=== PATIENT | female | born 1990 | race African-American/Black ===

== ENCOUNTER 2018-05-29 04:57 | Inpatient (IN) | payer MEDICAID, OTHER ==
[~2018-05-29] VITALS: Ht 322.6 cm; Wt 89.0 kg
[2018-05-29] VITALS (9 sets, daily range): BP systolic 108–145; BP diastolic 45–84
[~2018-05-29 04:57] MED LIST: ALBU17AE26
[2018-05-29] MEDS ORDERED: IPRATROPIUM BROMIDE (0.02%) 0.5MG/2.5ML NEB HHN STA (05:00)
[2018-05-29] MEDS ORDERED: METHYLPREDNISOLONE SOD SUCC 125 MG/2 ML VIAL IV STA (05:00)
[2018-05-29] MEDS ORDERED: ALBUTEROL (0.083%) 2.5MG/3ML NEB HHN STA (05:00)
[2018-05-29 05:29] LABS: EOSINOPHILS % 8.4 % (0.0-5.0); HEMATOCRIT. 40.7 % (36.0-48.0); HEMOGLOBIN. 13.8 g/dL (12.0-16.0); LYMPHOCYTES % 52.5 % (20.0-50.0); MEAN CORPUSCULAR HEMOGLOBIN 31.8 pg (28.0-32.0); MEAN CORPUSCULAR VOLUME 94.1 fL (81.0-99.0); MEAN PLATELET VOLUME 10.2 fl (7.4-10.4); MONOCYTES % 6.3 % (2.0-8.0); NEUTROPHILS % 31.8 % (40.0-76.0); PLATELET 243 x1000/uL (130-400); RED BLOOD CELL COUNT 4.32 mill/uL (4.2-5.4); RED CELL DISTRIBUTION WIDTH 13.9 % (11.6-14.6)
[2018-05-29] MEDS ORDERED: ONDANSETRON HCL 4MG/2ML INJ IV ONE (05:30)
[2018-05-29] MEDS ORDERED: HYDROCODONE/ACETAMINOPHEN 5/325MG TABLET PO ONE (05:30)
[2018-05-29 05:31] LABS: CHLORIDE 110 mEq/L (98-107)
[2018-05-29] MEDS ORDERED: LIDOCAINE HCL/PF 1% 2ML VIAL ONE (05:53)
[2018-05-29] MEDS ORDERED: MAGNESIUM 2 G PREMIX 50 ML IV ONE (06:00)
[2018-05-29 07:16] LABS: BG BASE EXCESS -2.4 mmol/L (-2.0-2.0); BG BILEVEL POS AIRWAY PRESSURE 15/5; BG CARBOXYHEMOGLOBIN 0.3 % (0.5-1.5); BG DEOXYHEMOGLOBIN 1.3 % (0.0-5.0); BG HCO3 ACT 23.7 mmol/L (22.0-26.0); BG METHEMOGLOBIN 0.2 % (0.0-1.5); BG OXYGEN SATURATION 98.7 % (92.0-98.5); BG OXYHEMOGLOBIN 98.2 % (94.0-97.0); BG PCO2 46.4 mmHg (35.0-45.0); BG PH 7.327 (7.350-7.450); BG PO2 152.1 mmHg (75.0-100.0); BG SAMPLE SITE RIGHT RADIAL; BG TOTAL HEMOGLOBIN 13.2 g/dL (12.0-18.0); BG VENT MODE MASK - BIPAP; BG VENT RATE 14 set
[2018-05-29] MEDS ORDERED: TRAMADOL 50MG TABLET PO PRN (10:30)
[2018-05-29] MEDS ORDERED: IPRATROPIUM/ALBUTEROL 0.5-3(2.5)MG/3ML NEB HHN PRN (11:00)
[2018-05-29] MEDS: HYDROMORPHONE HCL/PF 2MG/ML CPJ IV PRN ×2 (11:39→18:19)
[2018-05-29] MEDS ORDERED: CLONIDINE 0.1MG TABLET PO PRN (11:45)
[2018-05-29] MEDS ORDERED: ACETAMINOPHEN 325MG TABLET PO PRN (11:45)
[2018-05-29] MEDS ORDERED: DOCUSATE SODIUM 100MG CAPSULE PO PRN (11:45)
[2018-05-29] MEDS ORDERED: GUAIFENESIN 200MG TABLET PO PRN (11:45)
[2018-05-29] MEDS ORDERED: METHYLPREDNISOLONE SOD SUCC 40 MG/ML VIAL IV SCH (12:00)
[2018-05-29] MEDS: IPRATROPIUM/ALBUTEROL 0.5-3(2.5)MG/3ML NEB HHN SCH ×3 (12:35→20:11)
[2018-05-29] MEDS ORDERED: TERBUTALINE SULFATE 1MG/ML VIAL SUBCUT NR (12:45)
[2018-05-29] MEDS: AZITHROMYCIN 500 MG TABLET PO SCH (13:39)
[2018-05-29] MEDS: LORATADINE 10MG TABLET PO SCH (13:39)
[2018-05-29] MEDS: NICOTINE 7MG PATCH TD SCH (13:40)
[2018-05-29] MEDS: SODIUM CHLORIDE 0.9% 1,000 ML IV SCH (13:41)
[2018-05-29] MEDS: ONDANSETRON HCL 4MG/2ML INJ IV PRN ×2 (14:10→20:42)
[2018-05-29 17:37] LABS: *AMPHETAMINES SCREEN URINE NEGATIVE (NEGATIVE); *BARBITURATES SCREEN URINE NEGATIVE (NEGATIVE); *COCAINE SCREEN URINE NEGATIVE (NEGATIVE)
[2018-05-29 17:38] LABS: *BENZODIAZEPINES SCREEN URINE NEGATIVE (NEGATIVE); METHADONE URINE SCREEN NEGATIVE (NEGATIVE)
[2018-05-29] MEDS: MONTELUKAST SODIUM 10MG TABLET PO SCH (17:40)
[2018-05-29 17:41] LABS: PHENCYCLIDINE URINE SCREEN NEGATIVE (NEGATIVE)
[2018-05-29] MEDS: METHYLPREDNISOLONE SOD SUCC 125 MG/2 ML VIAL IV SCH ×2 (17:41→23:45)
[2018-05-29 17:51] LABS: CANNABINOID URINE SCREEN PRESUMTIVE POSITIVE (NEGATIVE); OPIATES URINE SCREEN PRESUMTIVE POSITIVE (NEGATIVE)
[2018-05-29 19:41] LABS: HCG SCREEN NEGATIVE
[2018-05-29] MEDS: FAMOTIDINE 20MG TABLET PO SCH (20:42)
[2018-05-29] MEDS ORDERED: FAMOTIDINE 20MG TABLET PO SCH (21:00)
[2018-05-30] VITALS (18 sets, daily range): BP systolic 95–145; BP diastolic 41–88
[2018-05-30] MEDS: HYDROMORPHONE HCL/PF 2MG/ML CPJ IV PRN ×4 (00:33→19:31)
[2018-05-30] MEDS: SODIUM CHLORIDE 0.9% 1,000 ML IV SCH ×2 (00:33→16:20)
[2018-05-30] MEDS: IPRATROPIUM/ALBUTEROL 0.5-3(2.5)MG/3ML NEB HHN SCH ×6 (04:11→21:38)
[2018-05-30] MEDS: ONDANSETRON HCL 4MG/2ML INJ IV PRN ×4 (04:14→19:31)
[2018-05-30] MEDS: METHYLPREDNISOLONE SOD SUCC 125 MG/2 ML VIAL IV SCH ×4 (05:29→21:55)
[2018-05-30 05:56] LABS: MEAN CORPUSCULAR HEMOGLOBIN 32.5 pg (28.0-32.0); MEAN CORPUSCULAR VOLUME 95.2 fL (81.0-99.0); MEAN PLATELET VOLUME 10.1 fl (7.4-10.4); PLATELET 232 x1000/uL (130-400); RED BLOOD CELL COUNT 3.99 mill/uL (4.2-5.4)
[2018-05-30 06:09] LABS: CHLORIDE 107 mEq/L (98-107)
[2018-05-30] MEDS: LORATADINE 10MG TABLET PO SCH (09:17)
[2018-05-30] MEDS: NICOTINE 7MG PATCH TD SCH (09:18)
[2018-05-30] MEDS: FAMOTIDINE 20MG TABLET PO SCH ×2 (09:18→21:55)
[2018-05-30] MEDS: AZITHROMYCIN 500 MG TABLET PO SCH (09:18)
[2018-05-30 10:11] LABS: PLATELET ESTIMATE NORMAL
[2018-05-30] MEDS: MONTELUKAST SODIUM 10MG TABLET PO SCH (16:57)
[2018-05-31] VITALS (14 sets, daily range): BP systolic 90–152; BP diastolic 30–79
[2018-05-31] MEDS: IPRATROPIUM/ALBUTEROL 0.5-3(2.5)MG/3ML NEB HHN SCH ×7 (00:35→23:44)
[2018-05-31] MEDS: HYDROMORPHONE HCL/PF 2MG/ML CPJ IV PRN ×4 (01:30→20:46)
[2018-05-31 06:02] LABS: BASOPHILS % 0.1 % (0.0-2.0); HEMATOCRIT. 37.6 % (36.0-48.0); HEMOGLOBIN. 12.7 g/dL (12.0-16.0); LYMPHOCYTES % 8.1 % (20.0-50.0); MEAN CORPUSCULAR VOLUME 94.6 fL (81.0-99.0); MEAN PLATELET VOLUME 10.1 fl (7.4-10.4); MONOCYTES % 2.6 % (2.0-8.0); NEUTROPHILS % 89.2 % (40.0-76.0); PLATELET 238 x1000/uL (130-400); RED BLOOD CELL COUNT 3.97 mill/uL (4.2-5.4); RED CELL DISTRIBUTION WIDTH 14.3 % (11.6-14.6)
[2018-05-31 06:26] LABS: CHLORIDE 106 mEq/L (98-107)
[2018-05-31] MEDS: SODIUM CHLORIDE 0.9% 1,000 ML IV SCH ×2 (06:45→20:53)
[2018-05-31] MEDS: METHYLPREDNISOLONE SOD SUCC 125 MG/2 ML VIAL IV SCH ×3 (06:45→20:45)
[2018-05-31] MEDS: LORATADINE 10MG TABLET PO SCH (08:13)
[2018-05-31] MEDS: FAMOTIDINE 20MG TABLET PO SCH ×2 (08:13→20:45)
[2018-05-31] MEDS: AZITHROMYCIN 500 MG TABLET PO SCH (08:13)
[2018-05-31] MEDS: NICOTINE 7MG PATCH TD SCH (08:14)
[2018-05-31] MEDS: ONDANSETRON HCL 4MG/2ML INJ IV PRN ×3 (08:29→20:46)
[2018-05-31] MEDS: MONTELUKAST SODIUM 10MG TABLET PO SCH (17:32)
[2018-05-31] MEDS: LORAZEPAM 0.5MG TABLET PO PRN (20:45)
[2018-06-01] VITALS (11 sets, daily range): BP systolic 95–148; BP diastolic 48–83
[2018-06-01] MEDS: HYDROMORPHONE HCL/PF 2MG/ML CPJ IV PRN ×4 (02:52→23:29)
[2018-06-01] MEDS: ONDANSETRON HCL 4MG/2ML INJ IV PRN ×3 (02:52→23:28)
[2018-06-01] MEDS: LORAZEPAM 0.5MG TABLET PO PRN ×2 (02:57→23:32)
[2018-06-01] MEDS: IPRATROPIUM/ALBUTEROL 0.5-3(2.5)MG/3ML NEB HHN SCH ×5 (03:50→20:27)
[2018-06-01 05:41] LABS: HEMATOCRIT. 36.2 % (36.0-48.0); HEMOGLOBIN. 12.4 g/dL (12.0-16.0); LYMPHOCYTES % 11.3 % (20.0-50.0); MEAN CORPUSCULAR HEMOGLOBIN 32.3 pg (28.0-32.0); MEAN CORPUSCULAR VOLUME 94.7 fL (81.0-99.0); MEAN PLATELET VOLUME 9.8 fl (7.4-10.4); MONOCYTES % 3.9 % (2.0-8.0); NEUTROPHILS % 84.8 % (40.0-76.0); PLATELET 215 x1000/uL (130-400); RED BLOOD CELL COUNT 3.82 mill/uL (4.2-5.4); RED CELL DISTRIBUTION WIDTH 14.3 % (11.6-14.6)
[2018-06-01] MEDS: METHYLPREDNISOLONE SOD SUCC 125 MG/2 ML VIAL IV SCH ×4 (06:41→23:28)
[2018-06-01] MEDS: LORATADINE 10MG TABLET PO SCH (07:49)
[2018-06-01] MEDS: FAMOTIDINE 20MG TABLET PO SCH (07:49)
[2018-06-01] MEDS: AZITHROMYCIN 500 MG TABLET PO SCH (07:49)
[2018-06-01 07:50] LABS: CHLORIDE 106 mEq/L (98-107)
[2018-06-01] MEDS: NICOTINE 7MG PATCH TD SCH (07:50)
[2018-06-01] MEDS: SODIUM CHLORIDE 0.9% 1,000 ML IV SCH (08:00)
[2018-06-01 09:03] LABS: CLARITY URINE CLEAR (CLEAR); COLOR URINE YELLOW (YELLOW); KETONES URINE NEGATIVE (NEGATIVE); LEUKOCYTE ESTERASE URINE NEGATIVE (NEGATIVE); NITRITE URINE NEGATIVE (NEGATIVE); OCCULT BLOOD URINE NEGATIVE (NEGATIVE); PH URINE 6.5 (4.5-8.0); PROTEIN URINE NEGATIVE (NEGATIVE); SPECIFIC GRAVITY URINE 1.017 (1.005-1.030); UROBILINOGEN URINE 0.2 E.U./dL (0.2-1.0)
[2018-06-01] MEDS: MONTELUKAST SODIUM 10MG TABLET PO SCH (16:28)
[2018-06-01] MEDS ORDERED: TERBUTALINE SULFATE 1MG/ML VIAL SUBCUT NR (17:15)
[2018-06-01] MEDS: FAMOTIDINE 20MG/2ML VIAL IV SCH (21:47)
[2018-06-02] VITALS (11 sets, daily range): BP systolic 114–137; BP diastolic 60–103
[2018-06-02] MEDS: IPRATROPIUM/ALBUTEROL 0.5-3(2.5)MG/3ML NEB HHN SCH ×6 (00:03→21:30)
[2018-06-02] MEDS: SODIUM CHLORIDE 0.9% 1,000 ML IV SCH ×2 (02:55→16:26)
[2018-06-02 05:07] LABS: BASOPHILS % 0.1 % (0.0-2.0); HEMATOCRIT. 37.7 % (36.0-48.0); HEMOGLOBIN. 12.8 g/dL (12.0-16.0); LYMPHOCYTES % 12.7 % (20.0-50.0); MEAN CORPUSCULAR HEMOGLOBIN 32.2 pg (28.0-32.0); MEAN PLATELET VOLUME 9.8 fl (7.4-10.4); MONOCYTES % 4.5 % (2.0-8.0); NEUTROPHILS % 82.7 % (40.0-76.0); PLATELET 212 x1000/uL (130-400); RED BLOOD CELL COUNT 3.97 mill/uL (4.2-5.4); RED CELL DISTRIBUTION WIDTH 14.1 % (11.6-14.6)
[2018-06-02] MEDS: ONDANSETRON HCL 4MG/2ML INJ IV PRN ×3 (05:31→18:57)
[2018-06-02] MEDS: METHYLPREDNISOLONE SOD SUCC 125 MG/2 ML VIAL IV SCH ×2 (05:31→11:46)
[2018-06-02] MEDS: HYDROMORPHONE HCL/PF 2MG/ML CPJ IV PRN ×3 (05:33→18:58)
[2018-06-02] MEDS: LORAZEPAM 0.5MG TABLET PO PRN ×3 (05:45→18:57)
[2018-06-02 05:48] LABS: CHLORIDE 108 mEq/L (98-107)
[2018-06-02] MEDS: LORATADINE 10MG TABLET PO SCH (08:29)
[2018-06-02] MEDS: NICOTINE 7MG PATCH TD SCH (08:29)
[2018-06-02] MEDS: AZITHROMYCIN 500 MG TABLET PO SCH (08:30)
[2018-06-02] MEDS: FAMOTIDINE 20MG/2ML VIAL IV SCH ×2 (08:30→21:47)
[2018-06-02] MEDS ORDERED: TERBUTALINE SULFATE 1MG/ML VIAL SUBCUT NR (11:30)
[2018-06-02] MEDS: MONTELUKAST SODIUM 10MG TABLET PO SCH (16:26)
[2018-06-02] MEDS: METHYLPREDNISOLONE SOD SUCC 40 MG/ML VIAL IV SCH (21:47)
[2018-06-03] VITALS (9 sets, daily range): BP systolic 117–150; BP diastolic 47–81
[2018-06-03] MEDS: IPRATROPIUM/ALBUTEROL 0.5-3(2.5)MG/3ML NEB HHN SCH ×4 (00:29→12:34)
[2018-06-03] MEDS: LORAZEPAM 0.5MG TABLET PO PRN ×2 (00:53→07:57)
[2018-06-03] MEDS: ONDANSETRON HCL 4MG/2ML INJ IV PRN ×3 (00:54→13:58)
[2018-06-03] MEDS: HYDROMORPHONE HCL/PF 2MG/ML CPJ IV PRN ×3 (00:54→13:57)
[2018-06-03] MEDS: SODIUM CHLORIDE 0.9% 1,000 ML IV SCH (06:05)
[2018-06-03 06:35] LABS: BASOPHILS % 0.2 % (0.0-2.0); HEMATOCRIT. 42.9 % (36.0-48.0); HEMOGLOBIN. 14.4 g/dL (12.0-16.0); LYMPHOCYTES % 12.2 % (20.0-50.0); MEAN CORPUSCULAR HEMOGLOBIN 32.1 pg (28.0-32.0); MEAN CORPUSCULAR VOLUME 95.3 fL (81.0-99.0); MEAN PLATELET VOLUME 10.2 fl (7.4-10.4); MONOCYTES % 8.2 % (2.0-8.0); NEUTROPHILS % 79.4 % (40.0-76.0); PLATELET 221 x1000/uL (130-400); RED CELL DISTRIBUTION WIDTH 13.8 % (11.6-14.6)
[2018-06-03 07:28] LABS: CHLORIDE 106 mEq/L (98-107)
[2018-06-03] MEDS: METHYLPREDNISOLONE SOD SUCC 40 MG/ML VIAL IV SCH ×2 (07:58→13:50)
[2018-06-03] MEDS: FAMOTIDINE 20MG/2ML VIAL IV SCH ×2 (09:00→10:03)
[2018-06-03] MEDS: LORATADINE 10MG TABLET PO SCH (10:02)
[2018-06-03] MEDS: AZITHROMYCIN 500 MG TABLET PO SCH (10:03)
[2018-06-03] MEDS: NICOTINE 7MG PATCH TD SCH (10:14)
== END 2018-06-03 15:20 | disposition home or self-care (01) | DRG 425 ==
LOC: ER 04:57 → 5EST 05:53 → EDBEDREQSVC 05:55 → EDBEDREQTM 05:55 → EDBEDREQ 05:55 → ENRESERV 08:07 → ER 08:29
PROVIDERS: ADMIT Internal Medicine; ATTEND Internal Medicine
PROC: 5A09357 Assistance with Respiratory Ventilation, Less than 24 Consecutive Hours, Continuous Positive Airway Pressure (ICD-10-PCS; principal; 2018-05-29)
PROC: 5A09357 Assistance with Respiratory Ventilation, Less than 24 Consecutive Hours, Continuous Positive Airway Pressure (ICD-10-PCS; 2018-06-03)
DX: E87.2 Acidosis (principal); J96.00 Acute respiratory failure, unspecified whether with hypoxia or hypercapnia; J45.901 Unspecified asthma with (acute) exacerbation; J82 Pulmonary eosinophilia, not elsewhere classified; M41.9 Scoliosis, unspecified; I10 Essential (primary) hypertension; D72.820 Lymphocytosis (symptomatic); E66.9 Obesity, unspecified; K21.9 Gastro-esophageal reflux disease without esophagitis; F12.90 Cannabis use, unspecified, uncomplicated; F17.210 Nicotine dependence, cigarettes, uncomplicated; Z68.1 Body mass index [BMI] 19.9 or less, adult
CPT/HCPCS: 36415; 36600; 71045; 72040; 72070; 73030; 74176; 76700; 80048; 80305; 82375; 82805; 83036; 83880; 84484; 84703; 85651; 86140; 93005; 94640; 96365; 96375; 99285; J1170; J2405; J2920; J2930; J3105; J3475; J3490; J7030; J7620

== ENCOUNTER 2019-02-11 21:18 | Inpatient (IN) | payer MEDICAID ==
[~2019-02-11] VITALS: Ht 165.1 cm; Wt 96.4 kg
[~2019-02-11 21:18] MED LIST changes: -ALBU17AE26; +ALBU18HF2 IH; +MOME13HF2 INH; +MONT10TA21 PO; +P20 MT; +PANT40TA4 MT
[2019-02-11] MEDS ORDERED: MAGNESIUM 2 G PREMIX 50 ML IV ONE (21:30)
[2019-02-11] MEDS ORDERED: EPINEPHRINE 1:1000 1 MG/ML AMP INJ ONE (21:30)
[2019-02-11] MEDS ORDERED: METHYLPREDNISOLONE SOD SUCC 125 MG/2 ML VIAL IV ONE (21:30)
[2019-02-11] MEDS ORDERED: ALBUTEROL (0.083%) 2.5MG/3ML NEB HHN ONE (21:30)
[2019-02-11 22:12] LABS: BASOPHILS % 0.5 % (0.0-2.0); EOSINOPHILS % 4.7 % (0.0-5.0); HEMATOCRIT. 38.5 % (36.0-48.0); HEMOGLOBIN. 12.9 g/dL (12.0-16.0); LYMPHOCYTES % 38.7 % (20.0-50.0); MEAN CORPUSCULAR HEMOGLOBIN 31.5 pg (28.0-32.0); MEAN CORPUSCULAR VOLUME 94.2 fL (81.0-99.0); MEAN PLATELET VOLUME 9.8 fl (7.4-10.4); MONOCYTES % 9.1 % (2.0-8.0); PLATELET 386 x1000/uL (130-400); RED BLOOD CELL COUNT 4.08 mill/uL (4.2-5.4); RED CELL DISTRIBUTION WIDTH 15.5 % (11.6-14.6)
[2019-02-11 22:18] LABS: CHLORIDE 106 mEq/L (98-107)
[2019-02-12] VITALS (13 sets, daily range): BP systolic 105–158; BP diastolic 51–99
[2019-02-12] MEDS ORDERED: IPRATROPIUM/ALBUTEROL 0.5-3(2.5)MG/3ML NEB HHN PRN (01:15)
[2019-02-12] MEDS ORDERED: LEVOFLOXACIN 500MG PREMIX 100 ML IV SCH ×2 (01:15→04:00)
[2019-02-12] MEDS: ONDANSETRON HCL 4MG/2ML INJ IV PRN ×2 (01:48→18:20)
[2019-02-12] MEDS: MORPHINE SULFATE 2 MG/ML CPJ (NOT FOR IM USE) IV PRN ×5 (01:49→22:50)
[2019-02-12] MEDS: IPRATROPIUM/ALBUTEROL 0.5-3(2.5)MG/3ML NEB HHN SCH ×5 (03:55→20:34)
[2019-02-12] MEDS ORDERED: INFLUENZA VIRUS VACCINE(AFLURIA) 0.5ML SYR IM ONE (05:45)
[2019-02-12] MEDS ORDERED: PNEUMOCOCCAL 23-VAL P-SAC VAC 0.5 ML IM ONE (05:45)
[2019-02-12] MEDS ORDERED: METHYLPREDNISOLONE SOD SUCC 40 MG/ML VIAL IV SCH (06:00)
[2019-02-12] MEDS ORDERED: PANTOPRAZOLE 40MG DR TABLET PO SCH (06:50)
[2019-02-12] MEDS: ENOXAPARIN 40MG/0.4ML SYR SUBCUT SCH (08:16)
[2019-02-12] MEDS: AMLODIPINE 5MG TABLET PO SCH (09:45)
[2019-02-12] MEDS: METHYLPREDNISOLONE SOD SUCC 125 MG/2 ML VIAL IV SCH ×2 (13:12→21:36)
[2019-02-12] MEDS: MONTELUKAST SODIUM 10MG TABLET PO SCH (18:21)
[2019-02-12 20:56] LABS: *AMPHETAMINES SCREEN URINE NEGATIVE (NEGATIVE)
[2019-02-12 20:57] LABS: *BENZODIAZEPINES SCREEN URINE NEGATIVE (NEGATIVE); *COCAINE SCREEN URINE NEGATIVE (NEGATIVE); METHADONE URINE SCREEN NEGATIVE (NEGATIVE)
[2019-02-12 20:58] LABS: PHENCYCLIDINE URINE SCREEN NEGATIVE (NEGATIVE)
[2019-02-12 21:04] LABS: *BARBITURATES SCREEN URINE PRESUMTIVE POSITIVE (NEGATIVE); CANNABINOID URINE SCREEN PRESUMTIVE POSITIVE (NEGATIVE); OPIATES URINE SCREEN PRESUMTIVE POSITIVE (NEGATIVE)
[2019-02-12] MEDS: FAMOTIDINE 20MG TABLET PO SCH (21:37)
[2019-02-12] MEDS: FLUTICASONE PROPIONATE 50MCG/SPRAY BOTTLE BOTHNSTRLS SCH (21:37)
[2019-02-12] MEDS: LORATADINE 10MG TABLET PO SCH (21:38)
[2019-02-13] VITALS (12 sets, daily range): BP systolic 120–158; BP diastolic 56–86
[2019-02-13] MEDS: ONDANSETRON HCL 4MG/2ML INJ IV PRN ×3 (00:25→13:15)
[2019-02-13] MEDS: IPRATROPIUM/ALBUTEROL 0.5-3(2.5)MG/3ML NEB HHN SCH ×6 (00:42→20:16)
[2019-02-13] MEDS: METHYLPREDNISOLONE SOD SUCC 125 MG/2 ML VIAL IV SCH ×3 (04:59→20:22)
[2019-02-13] MEDS: MORPHINE SULFATE 2 MG/ML CPJ (NOT FOR IM USE) IV PRN ×3 (05:05→14:59)
[2019-02-13] MEDS: DOCUSATE SODIUM 250MG CAPSULE PO PRN (09:31)
[2019-02-13] MEDS: FAMOTIDINE 20MG TABLET PO SCH ×2 (09:32→20:22)
[2019-02-13] MEDS: AMLODIPINE 5MG TABLET PO SCH (09:32)
[2019-02-13] MEDS: ENOXAPARIN 40MG/0.4ML SYR SUBCUT SCH (09:38)
[2019-02-13] MEDS ORDERED: BENZONATATE 100MG CAPSULE PO PRN (09:45)
[2019-02-13] MEDS ORDERED: LACTULOSE 20G/30ML UDC PO SCH (10:00)
[2019-02-13] MEDS ORDERED: GUAIFENESIN/CODEINE 100-10MG/5ML UDC PO PRN (12:00)
[2019-02-13] MEDS ORDERED: TERBUTALINE SULFATE 1MG/ML VIAL SUBCUT SCH (12:00)
[2019-02-13] MEDS: FLUTICASONE PROPIONATE 50MCG/SPRAY BOTTLE BOTHNSTRLS SCH ×2 (13:16→20:22)
[2019-02-13 16:45] LABS: CHLORIDE 106 mEq/L (98-107)
[2019-02-13 16:59] LABS: BASOPHILS % 0.1 % (0.0-2.0); HEMATOCRIT. 37.2 % (36.0-48.0); HEMOGLOBIN. 12.4 g/dL (12.0-16.0); LYMPHOCYTES % 7.8 % (20.0-50.0); MEAN CORPUSCULAR HEMOGLOBIN 31.3 pg (28.0-32.0); MEAN CORPUSCULAR VOLUME 94.2 fL (81.0-99.0); MEAN PLATELET VOLUME 9.8 fl (7.4-10.4); MONOCYTES % 5.1 % (2.0-8.0); PLATELET 335 x1000/uL (130-400); RED BLOOD CELL COUNT 3.95 mill/uL (4.2-5.4); RED CELL DISTRIBUTION WIDTH 15.3 % (11.6-14.6)
[2019-02-13] MEDS: MONTELUKAST SODIUM 10MG TABLET PO SCH (17:34)
[2019-02-13] MEDS: KETOROLAC 30MG/ML VIAL IV PRN (17:37)
[2019-02-13] MEDS: LORATADINE 10MG TABLET PO SCH (20:22)
[2019-02-14] VITALS (12 sets, daily range): BP systolic 104–159; BP diastolic 45–82
[2019-02-14] MEDS: IPRATROPIUM/ALBUTEROL 0.5-3(2.5)MG/3ML NEB HHN SCH ×6 (00:16→20:19)
[2019-02-14] MEDS: KETOROLAC 30MG/ML VIAL IV PRN ×3 (00:31→15:12)
[2019-02-14] MEDS: METHYLPREDNISOLONE SOD SUCC 125 MG/2 ML VIAL IV SCH ×3 (04:50→20:55)
[2019-02-14] MEDS: ONDANSETRON HCL 4MG/2ML INJ IV PRN ×2 (07:52→22:50)
[2019-02-14] MEDS: DOCUSATE SODIUM 250MG CAPSULE PO PRN (08:36)
[2019-02-14] MEDS: FAMOTIDINE 20MG TABLET PO SCH (08:36)
[2019-02-14] MEDS: AMLODIPINE 5MG TABLET PO SCH (08:39)
[2019-02-14] MEDS: FLUTICASONE PROPIONATE 50MCG/SPRAY BOTTLE BOTHNSTRLS SCH ×2 (08:39→20:55)
[2019-02-14] MEDS: ENOXAPARIN 40MG/0.4ML SYR SUBCUT SCH (08:41)
[2019-02-14] MEDS: HYDROCODONE/ACETAMINOPHEN 5/325MG TABLET PO PRN ×3 (12:17→22:51)
[2019-02-14] MEDS: MONTELUKAST SODIUM 10MG TABLET PO SCH (17:27)
[2019-02-14] MEDS: LEVOFLOXACIN 500MG PREMIX 100 ML IV SCH (17:30)
[2019-02-14] MEDS: LORATADINE 10MG TABLET PO SCH (20:55)
[2019-02-14] MEDS: FAMOTIDINE 40MG TABLET PO SCH (21:10)
[2019-02-15] VITALS (10 sets, daily range): BP systolic 119–150; BP diastolic 39–82
[2019-02-15] MEDS: IPRATROPIUM/ALBUTEROL 0.5-3(2.5)MG/3ML NEB HHN SCH ×6 (00:42→20:28)
[2019-02-15] MEDS: HYDROCODONE/ACETAMINOPHEN 5/325MG TABLET PO PRN ×3 (05:18→21:05)
[2019-02-15] MEDS: METHYLPREDNISOLONE SOD SUCC 125 MG/2 ML VIAL IV SCH ×3 (05:18→20:03)
[2019-02-15] MEDS: ONDANSETRON HCL 4MG/2ML INJ IV PRN ×3 (05:18→20:03)
[2019-02-15] MEDS: ENOXAPARIN 40MG/0.4ML SYR SUBCUT SCH (09:06)
[2019-02-15] MEDS: AMLODIPINE 5MG TABLET PO SCH (09:08)
[2019-02-15] MEDS: FAMOTIDINE 40MG TABLET PO SCH ×2 (09:09→20:03)
[2019-02-15] MEDS: FLUTICASONE PROPIONATE 50MCG/SPRAY BOTTLE BOTHNSTRLS SCH ×2 (09:10→20:03)
[2019-02-15] MEDS: KETOROLAC 30MG/ML VIAL IV PRN ×2 (09:11→18:21)
[2019-02-15] MEDS ORDERED: SORBITOL 70% SOLN 30ML PO SCH (12:00)
[2019-02-15] MEDS: DOCUSATE SODIUM 250MG CAPSULE PO SCH (12:00)
[2019-02-15 13:20] LABS: BASOPHILS % 0.3 % (0.0-2.0); EOSINOPHILS % 0.3 % (0.0-5.0); HEMATOCRIT. 39.1 % (36.0-48.0); HEMOGLOBIN. 12.8 g/dL (12.0-16.0); LYMPHOCYTES % 11.8 % (20.0-50.0); MEAN CORPUSCULAR HEMOGLOBIN 30.9 pg (28.0-32.0); MEAN CORPUSCULAR VOLUME 94.5 fL (81.0-99.0); MEAN PLATELET VOLUME 9.6 fl (7.4-10.4); MONOCYTES % 6.1 % (2.0-8.0); NEUTROPHILS % 81.5 % (40.0-76.0); PLATELET 317 x1000/uL (130-400); RED BLOOD CELL COUNT 4.14 mill/uL (4.2-5.4); RED CELL DISTRIBUTION WIDTH 15.4 % (11.6-14.6)
[2019-02-15 13:25] LABS: CHLORIDE 107 mEq/L (98-107)
[2019-02-15] MEDS: MONTELUKAST SODIUM 10MG TABLET PO SCH (17:47)
[2019-02-15] MEDS ORDERED: KETOROLAC 15MG/ML VIAL IV PRN (18:15)
[2019-02-15] MEDS: LEVOFLOXACIN 500MG PREMIX 100 ML IV SCH (18:18)
[2019-02-15] MEDS: LORATADINE 10MG TABLET PO SCH (20:03)
[2019-02-16] VITALS (9 sets, daily range): BP systolic 124–157; BP diastolic 49–73
[2019-02-16] MEDS: IPRATROPIUM/ALBUTEROL 0.5-3(2.5)MG/3ML NEB HHN SCH ×6 (00:32→20:24)
[2019-02-16] MEDS: KETOROLAC 30MG/ML VIAL IV PRN ×3 (00:33→21:24)
[2019-02-16] MEDS: METHYLPREDNISOLONE SOD SUCC 125 MG/2 ML VIAL IV SCH ×3 (05:02→20:22)
[2019-02-16] MEDS: ONDANSETRON HCL 4MG/2ML INJ IV PRN ×2 (05:07→15:35)
[2019-02-16] MEDS: HYDROCODONE/ACETAMINOPHEN 5/325MG TABLET PO PRN (07:44)
[2019-02-16] MEDS: ENOXAPARIN 30MG/0.3ML SYR SUBCUT SCH ×2 (08:05→21:22)
[2019-02-16] MEDS: FAMOTIDINE 40MG TABLET PO SCH ×2 (08:06→20:21)
[2019-02-16] MEDS: DOCUSATE SODIUM 250MG CAPSULE PO SCH (08:06)
[2019-02-16] MEDS: AMLODIPINE 5MG TABLET PO SCH (08:06)
[2019-02-16] MEDS ORDERED: DIATR MEGLU/DIATRIZOATE SOLN 30ML PO SCH ×2 (12:00→14:30)
[2019-02-16] MEDS ORDERED: NA PHOS,M-B/NA PHOS,DI-BA ENEMA 118ML PR ONE (12:00)
[2019-02-16] MEDS ORDERED: GUAIFENESIN/CODEINE 200-20MG/10ML UDC PO PRN (15:04)
[2019-02-16 17:10] LABS: UCG SCREEN NEGATIVE
[2019-02-16] MEDS: LEVOFLOXACIN 500MG PREMIX 100 ML IV SCH (19:19)
[2019-02-16] MEDS: MONTELUKAST SODIUM 10MG TABLET PO SCH (19:19)
[2019-02-16] MEDS: LORATADINE 10MG TABLET PO SCH (20:21)
[2019-02-16] MEDS ORDERED: IOHEXOL-300 100 ML BOTTLE ONE (22:31)
[2019-02-17] VITALS (9 sets, daily range): BP systolic 111–136; BP diastolic 61–78
[2019-02-17] MEDS: IPRATROPIUM/ALBUTEROL 0.5-3(2.5)MG/3ML NEB HHN SCH ×5 (00:47→16:16)
[2019-02-17] MEDS: KETOROLAC 30MG/ML VIAL IV PRN ×2 (04:04→14:14)
[2019-02-17] MEDS: METHYLPREDNISOLONE SOD SUCC 125 MG/2 ML VIAL IV SCH ×2 (04:04→12:04)
[2019-02-17] MEDS: AMLODIPINE 5MG TABLET PO SCH (08:25)
[2019-02-17] MEDS: DOCUSATE SODIUM 250MG CAPSULE PO SCH (08:25)
[2019-02-17] MEDS: FAMOTIDINE 40MG TABLET PO SCH (08:25)
[2019-02-17] MEDS: ENOXAPARIN 30MG/0.3ML SYR SUBCUT SCH (08:25)
[2019-02-17] MEDS: HYDROCODONE/ACETAMINOPHEN 5/325MG TABLET PO PRN (09:54)
[2019-02-17] MEDS ORDERED: BISACODYL 10MG SUPP PR SCH (12:45)
[2019-02-17] MEDS ORDERED: SORBITOL 70% SOLN 30ML PO SCH (12:45)
[2019-02-17] MEDS: ONDANSETRON HCL 4MG/2ML INJ IV PRN (13:25)
[2019-02-17] MEDS: MONTELUKAST SODIUM 10MG TABLET PO SCH (16:23)
[2019-02-17] MEDS: LEVOFLOXACIN 500MG PREMIX 100 ML IV SCH (17:04)
[2019-02-17] MEDS: LACTULOSE 20G/30ML UDC PO NR ×2 (18:11→18:13)
== END 2019-02-17 20:20 | disposition home or self-care (01) | DRG 139 ==
LOC: ER 21:18 → 3WST 21:37 → ENRESERV 22:46 → 3WST 02-17 15:41
PROVIDERS: ADMIT Internal Medicine; ATTEND Internal Medicine
PROC: 5A09357 Assistance with Respiratory Ventilation, Less than 24 Consecutive Hours, Continuous Positive Airway Pressure (ICD-10-PCS; principal; 2019-02-11)
PROC: 5A09357 Assistance with Respiratory Ventilation, Less than 24 Consecutive Hours, Continuous Positive Airway Pressure (ICD-10-PCS; 2019-02-11)
DX: J18.9 Pneumonia, unspecified organism (principal); J96.00 Acute respiratory failure, unspecified whether with hypoxia or hypercapnia; J45.902 Unspecified asthma with status asthmaticus; J00 Acute nasopharyngitis [common cold]; E66.9 Obesity, unspecified; G89.29 Other chronic pain; F12.90 Cannabis use, unspecified, uncomplicated; K21.9 Gastro-esophageal reflux disease without esophagitis; M94.0 Chondrocostal junction syndrome [Tietze]; I10 Essential (primary) hypertension; F17.210 Nicotine dependence, cigarettes, uncomplicated; Z71.3 Dietary counseling and surveillance; Z71.6 Tobacco abuse counseling; Z68.35 Body mass index [BMI] 35.0-35.9, adult; Z79.899 Other long term (current) drug therapy; Z82.49 Family history of ischemic heart disease and other diseases of the circulatory system
CPT/HCPCS: 36415; 71045; 72040; 72070; 72100; 74018; 74177; 80048; 80305; 81025; 83036; 85025; 90686; 90732; 94640; 94660; 96365; 99291; J1650; J1885; J1956; J2270; J2405; J2920; J2930; J3105; J3475; J3490; J7040; J7611; J7620; Q9963; Q9967

== ENCOUNTER 2019-10-09 12:25 | Emergency (ER) | payer MEDICAID ==
[~2019-10-09] VITALS: Ht 160 cm; Wt 87.0 kg
[2019-10-09] MEDS ORDERED: METOCLOPRAMIDE HCL 10MG/2ML VIAL IV STA (13:08)
[2019-10-09] MEDS ORDERED: FAMOTIDINE 20MG/2ML VIAL IV STA (13:08)
[2019-10-09] MEDS ORDERED: MAGNESIUM/ALUMINUM HYDROXIDE/SIMETHICONE 30ML UDC PO STA (13:08)
[2019-10-09] MEDS ORDERED: KETOROLAC 60MG/2ML VIAL IM STA (13:08)
[2019-10-09] MEDS ORDERED: VISCOUS LIDOCAINE 2% 15 ML UDC PO STA (13:08)
[2019-10-09] MEDS ORDERED: ALBUTEROL 6.7GM HFA INHALER ORI ONE (13:30)
[2019-10-09 13:36] LABS: HEMATOCRIT. 34.7 % (36.0-48.0); HEMOGLOBIN. 11.7 g/dL (12.0-16.0); MEAN CORPUSCULAR HEMOGLOBIN 30.7 pg (28.0-32.0); MEAN PLATELET VOLUME 10.1 fl (7.4-10.4); PLATELET 213 x1000/uL (130-400); RED BLOOD CELL COUNT 3.81 mill/uL (4.2-5.4); RED CELL DISTRIBUTION WIDTH 16.6 % (11.6-14.6)
[2019-10-09 13:37] LABS: CHLORIDE 111 mEq/L (98-107)
[2019-10-09] MEDS ORDERED: POTASSIUM CHLORIDE 20MEQ TABLET SR PO NR (14:00)
[2019-10-09] MEDS ORDERED: ONDANSETRON 4MG ODT PO NR (14:00)
[2019-10-09 14:06] LABS: PLATELET ESTIMATE NORMAL
[2019-10-09 15:21] VITALS: BP 128/78
[2019-11-16] MEDS ORDERED: HYDR-4009 MT (16:55)
[2019-11-16] MEDS ORDERED: MED4 MT (16:55)
== END 2019-10-09 15:22 | disposition home or self-care (01) ==
LOC: ER 12:25
DX: J45.909 Unspecified asthma, uncomplicated (principal); K29.70 Gastritis, unspecified, without bleeding; R03.0 Elevated blood-pressure reading, without diagnosis of hypertension
CPT/HCPCS: 36415; 71045; 80053; 83690; 83880; 84484; 85025; 93005; 94640; 96374; 96375; 99285; J1885; J2765; J3490; Q0162; Z7610

== ENCOUNTER 2019-12-14 10:23 | Emergency (ER) | payer MEDICAID ==
[~2019-12-14] VITALS: Ht 160 cm; Wt 87.0 kg
[~2019-12-14 10:23] MED LIST changes: +HYDR-4009 MT; +MED4 MT; -P20 MT
[2019-12-14] MEDS ORDERED: ALBUTEROL (0.083%) 2.5MG/3ML NEB HHN STA (10:57)
[2019-12-14] MEDS ORDERED: METHYLPREDNISOLONE SOD SUCC 125 MG/2 ML VIAL IV STA (10:57)
[2019-12-14] MEDS ORDERED: IPRATROPIUM BROMIDE (0.02%) 0.5MG/2.5ML NEB HHN STA (10:57)
[2019-12-14] MEDS ORDERED: SODIUM CHLORIDE 0.9% 1,000 ML IV ONE (11:00)
[2019-12-14 11:31] LABS: BASOPHILS % 0.4 % (0.0-2.0); EOSINOPHILS % 0.7 % (0.0-5.0); HEMATOCRIT. 36.4 % (36.0-48.0); HEMOGLOBIN. 12.3 g/dL (12.0-16.0); LYMPHOCYTES % 17.5 % (20.0-50.0); MEAN CORPUSCULAR VOLUME 92.1 fL (81.0-99.0); MEAN PLATELET VOLUME 9.3 fl (7.4-10.4); MONOCYTES % 3.2 % (2.0-8.0); NEUTROPHILS % 78.2 % (40.0-76.0); PLATELET 269 x1000/uL (130-400); RED BLOOD CELL COUNT 3.95 mill/uL (4.2-5.4); RED CELL DISTRIBUTION WIDTH 16.6 % (11.6-14.6)
[2019-12-14 11:39] LABS: CHLORIDE 109 mEq/L (98-107)
[2019-12-14] MEDS ORDERED: ALBUTEROL (0.083%) 2.5MG/3ML NEB ONE (11:54)
[2019-12-14 13:00] VITALS: BP 140/71
[2019-12-14] MEDS ORDERED: ALBUTEROL (0.083%) 2.5MG/3ML NEB HHN ONE (13:00)
[2019-12-14] MEDS ORDERED: HYDROCODONE/ACETAMINOPHEN 5/325MG TABLET PO ONE (13:00)
== END 2019-12-14 14:00 | disposition home or self-care (01) ==
LOC: ER 10:23
DX: J45.901 Unspecified asthma with (acute) exacerbation (principal); G89.29 Other chronic pain; M54.9 Dorsalgia, unspecified; F17.200 Nicotine dependence, unspecified, uncomplicated; Z88.6 Allergy status to analgesic agent; Z79.899 Other long term (current) drug therapy; Z98.890 Other specified postprocedural states
CPT/HCPCS: 36415; 71045; 80053; 81025; 83690; 85025; 93005; 94640; 96374; 99285; J2930; J7030; Z7610

== ENCOUNTER 2019-12-14 21:02 | Emergency (ER) | payer MEDICAID ==
[~2019-12-14] VITALS: Ht 160 cm; Wt 87.0 kg
[2019-12-14] MEDS: KETOROLAC 30MG/ML VIAL IM ONE (22:16)
[2019-12-14 22:38] LABS: CLARITY URINE CLEAR (CLEAR); COLOR URINE YELLOW (YELLOW); KETONES URINE TRACE (NEGATIVE); LEUKOCYTE ESTERASE URINE NEGATIVE (NEGATIVE); NITRITE URINE NEGATIVE (NEGATIVE); OCCULT BLOOD URINE NEGATIVE (NEGATIVE); PROTEIN URINE NEGATIVE (NEGATIVE); SPECIFIC GRAVITY URINE 1.033 (1.005-1.030)
[2019-12-14] MEDS: MORPHINE SULFATE 2 MG/ML CPJ (NOT FOR IM USE) IV ONE (23:58)
[2019-12-15 01:41] VITALS: BP 131/74
== END 2019-12-15 01:42 | disposition home or self-care (01) ==
LOC: ER 21:02
DX: M54.9 Dorsalgia, unspecified (principal); K21.9 Gastro-esophageal reflux disease without esophagitis; J45.909 Unspecified asthma, uncomplicated; Z88.6 Allergy status to analgesic agent; Z79.899 Other long term (current) drug therapy; Z98.890 Other specified postprocedural states
CPT/HCPCS: 81003; 96372; 96374; 99284; J1885; J2270

== ENCOUNTER 2020-01-27 19:06 | Emergency (ER) | payer MEDICAID ==
[~2020-01-27] VITALS: Ht 188 cm; Wt 87.0 kg
[~2020-01-27 19:06] MED LIST changes: +ALPR1TAB2 PO; +GABA-529 PO; -HYDR-4009 MT; +OXYC-662 MT; +ZOLP5TAB2 PO
[2020-01-27] MEDS ORDERED: KETOROLAC 30MG/ML VIAL IM ONE (21:45)
[2020-01-27] MEDS ORDERED: ONDANSETRON 4MG ODT PO ONE (21:45)
[2020-01-27 22:32] LABS: CLARITY URINE TURBID (CLEAR); COLOR URINE YELLOW (YELLOW); KETONES URINE NEGATIVE (NEGATIVE); LEUKOCYTE ESTERASE URINE NEGATIVE (NEGATIVE); NITRITE URINE NEGATIVE (NEGATIVE); OCCULT BLOOD URINE NEGATIVE (NEGATIVE); PH URINE >=9.0 (4.5-8.0); PROTEIN URINE NEGATIVE (NEGATIVE)
[2020-01-27] MEDS ORDERED: OXYCODONE HCL/ACETAMINOPHEN 5/325MG TABLET PO ONE (23:30)
[2020-01-28 00:02] LABS: BASOPHILS % 1.1 % (0.0-2.0); EOSINOPHILS % 8.5 % (0.0-5.0); HEMATOCRIT. 34.5 % (36.0-48.0); HEMOGLOBIN. 11.7 g/dL (12.0-16.0); LYMPHOCYTES % 41.8 % (20.0-50.0); MEAN CORPUSCULAR HEMOGLOBIN 31.1 pg (28.0-32.0); MEAN CORPUSCULAR VOLUME 91.8 fL (81.0-99.0); MEAN PLATELET VOLUME 9.1 fl (7.4-10.4); MONOCYTES % 5.8 % (2.0-8.0); NEUTROPHILS % 42.8 % (40.0-76.0); PLATELET 287 x1000/uL (130-400); RED BLOOD CELL COUNT 3.76 mill/uL (4.2-5.4); RED CELL DISTRIBUTION WIDTH 15.8 % (11.6-14.6)
[2020-01-28 00:18] LABS: CHLORIDE 109 mEq/L (98-107)
[2020-01-28] MEDS ORDERED: ALBUTEROL (0.083%) 2.5MG/3ML NEB HHN STA (00:39)
[2020-01-28] MEDS ORDERED: PREDNISONE 20MG TABLET PO STA (00:39)
[2020-01-28] MEDS ORDERED: IPRATROPIUM BROMIDE (0.02%) 0.5MG/2.5ML NEB HHN STA (00:39)
[2020-01-28] MEDS ORDERED: KETOROLAC 30MG/ML VIAL IM ONE (02:15)
[2020-01-28 02:29] VITALS: BP 122/75
[2020-01-30] MEDS ORDERED: ALBU4TAB6 INH (23:43)
[2020-01-30] MEDS ORDERED: ALPR1TAB2 PO (23:43)
[2020-01-30] MEDS ORDERED: ZOLP5TAB2 MT (23:43)
== END 2020-01-28 02:29 | disposition home or self-care (01) ==
LOC: ER 19:06
DX: R10.32 Left lower quadrant pain (principal); M54.9 Dorsalgia, unspecified; J45.909 Unspecified asthma, uncomplicated; Z79.899 Other long term (current) drug therapy
CPT/HCPCS: 36415; 72100; 76830; 76856; 80053; 81003; 81025; 85025; 94640; 96372; 99285; J1885; J7512; Q0162; Z7610

== ENCOUNTER 2020-02-13 14:29 | Emergency (ER) | payer MEDICAID, OTHER ==
[~2020-02-13] VITALS: Ht 160 cm; Wt 87.0 kg
[~2020-02-13 14:29] MED LIST changes: +OMEP20TA2 MT; -PANT40TA4 MT; +PANT40TA51 MT; +TRAM50TA3 MT; +ZOLP5TAB2 MT
[2020-02-13 15:07] VITALS: BP 135/75
[2020-02-13 16:37] LABS: BASOPHILS % 0.5 % (0.0-2.0); EOSINOPHILS % 2.4 % (0.0-5.0); HEMATOCRIT. 35.7 % (36.0-48.0); HEMOGLOBIN. 12.1 g/dL (12.0-16.0); LYMPHOCYTES % 25.9 % (20.0-50.0); MEAN CORPUSCULAR HEMOGLOBIN 30.8 pg (28.0-32.0); MEAN CORPUSCULAR VOLUME 91.4 fL (81.0-99.0); MEAN PLATELET VOLUME 9.6 fl (7.4-10.4); NEUTROPHILS % 59.2 % (40.0-76.0); PLATELET 243 x1000/uL (130-400); RED BLOOD CELL COUNT 3.91 mill/uL (4.2-5.4)
[2020-02-13 16:42] LABS: CHLORIDE 107 mEq/L (98-107)
[2020-02-13 16:48] LABS: HCG SCREEN NEGATIVE
[2020-02-13] MEDS ORDERED: ALBUTEROL 6.7GM HFA INHALER ORI ONE (21:15)
[2020-02-13] MEDS ORDERED: PREDNISONE 20MG TABLET PO ONE (21:15)
== END 2020-02-13 21:50 | disposition home or self-care (01) ==
LOC: ER 14:29
DX: J45.901 Unspecified asthma with (acute) exacerbation (principal); R10.9 Unspecified abdominal pain; M54.9 Dorsalgia, unspecified; G89.29 Other chronic pain; F41.9 Anxiety disorder, unspecified; K76.0 Fatty (change of) liver, not elsewhere classified; K21.9 Gastro-esophageal reflux disease without esophagitis; Z88.6 Allergy status to analgesic agent; Z88.8 Allergy status to other drugs, medicaments and biological substances
CPT/HCPCS: 36415; 71045; 80048; 80076; 84703; 85025; 93005; 94640; 99285; J7512; Z7610

== ENCOUNTER 2020-02-24 14:36 | Emergency (ER) | payer OTHER ==
[~2020-02-24] VITALS: Ht 165.1 cm; Wt 75.0 kg
[~2020-02-24 14:36] MED LIST changes: +PANT40TA4 MT; -PANT40TA51 MT
[2020-02-24 17:06] LABS: BASOPHILS % 0.6 % (0.0-2.0); EOSINOPHILS % 9.9 % (0.0-5.0); HEMATOCRIT. 36.3 % (36.0-48.0); HEMOGLOBIN. 11.7 g/dL (12.0-16.0); LYMPHOCYTES % 41.3 % (20.0-50.0); MEAN CORPUSCULAR HEMOGLOBIN 29.5 pg (28.0-32.0); MEAN CORPUSCULAR VOLUME 91.7 fL (81.0-99.0); MEAN PLATELET VOLUME 10.2 fl (7.4-10.4); MONOCYTES % 9.7 % (2.0-8.0); NEUTROPHILS % 38.5 % (40.0-76.0); PLATELET 195 x1000/uL (130-400); RED BLOOD CELL COUNT 3.96 mill/uL (4.2-5.4); RED CELL DISTRIBUTION WIDTH 16.4 % (11.6-14.6)
[2020-02-24 17:14] LABS: CHLORIDE 108 mEq/L (98-107)
[2020-02-24 17:38] LABS: PROTHROMBIN TIME 10.4 sec (9.6-11.0)
[2020-02-24] MEDS ORDERED: HYDROCODONE/ACETAMINOPHEN 5/325MG TABLET PO ONE (18:00)
[2020-02-24] MEDS ORDERED: ONDANSETRON HCL 4MG/2ML INJ IV PRN (18:30)
[2020-02-24] MEDS ORDERED: IOHEXOL-300 100 ML BOTTLE ONE (23:26)
[2020-02-25] MEDS ORDERED: HYDROCODONE/ACETAMINOPHEN 10/325MG TABLET PO PRN (01:45)
[2020-02-25] MEDS ORDERED: IPRATROPIUM/ALBUTEROL 0.5-3(2.5)MG/3ML NEB HHN PRN (08:45)
[2020-02-25] MEDS ORDERED: METOCLOPRAMIDE HCL 10MG/2ML VIAL IV PRN (12:15)
[2020-02-26 08:10] VITALS: BP 112/60
[2020-02-26] MEDS ORDERED: TRAMADOL 50MG TABLET PO ONE (10:30)
[2020-02-26] MEDS ORDERED: KETOROLAC 30MG/ML VIAL IV ONE (15:30)
== END 2020-02-26 18:12 | disposition home or self-care (01) ==
LOC: ER 14:36 → EDBEDREQ 17:40 → CANBEDREQ 02-26 17:54 → ER 02-26 18:12
DX: G89.29 Other chronic pain (principal); R10.84 Generalized abdominal pain; E87.8 Other disorders of electrolyte and fluid balance, not elsewhere classified; R53.1 Weakness; R20.0 Anesthesia of skin; J45.909 Unspecified asthma, uncomplicated; Z76.5 Malingerer [conscious simulation]; F12.90 Cannabis use, unspecified, uncomplicated; F17.210 Nicotine dependence, cigarettes, uncomplicated; Z71.6 Tobacco abuse counseling
CPT/HCPCS: 36415; 72148; 74177; 80053; 83690; 85025; 85610; 85651; 96374; 96375; 99285; 99406; J1885; J2405; J2765; Q9967

== ENCOUNTER 2020-06-18 07:10 | Inpatient (IN) | payer OTHER ==
[~2020-06-18] VITALS: Ht 160 cm; Wt 81.2 kg
[~2020-06-18 07:10] MED LIST changes: -OMEP20TA2 MT; -PANT40TA4 MT; +PANT40TA51 MT; -ZOLP5TAB2 MT
[2020-06-18] MEDS ORDERED: IPRATROPIUM BROMIDE (0.02%) 0.5MG/2.5ML NEB HHN STA (07:16)
[2020-06-18] MEDS ORDERED: METHYLPREDNISOLONE SOD SUCC 125 MG/2 ML VIAL IV STA (07:16)
[2020-06-18] MEDS: ALBUTEROL (0.083%) 2.5MG/3ML NEB HHN SCH ×3 (07:20→08:10)
[2020-06-18 07:48] LABS: BG BASE EXCESS -1.9 mmol/L (-2.0-2.0); BG CARBOXYHEMOGLOBIN 0.9 % (0.5-1.5); BG DEOXYHEMOGLOBIN 0.6 % (0.0-5.0); BG HCO3 ACT 24.3 mmol/L (22.0-26.0); BG METHEMOGLOBIN 0.4 % (0.0-1.5); BG OXYGEN SATURATION 99.4 % (92.0-98.5); BG OXYHEMOGLOBIN 98.1 % (94.0-97.0); BG PCO2 47.5 mmHg (35.0-45.0); BG PH 7.327 (7.350-7.450); BG PO2 230.9 mmHg (75.0-100.0); BG SAMPLE SITE RIGHT RADIAL; BG TOTAL HEMOGLOBIN 11.4 g/dL (12.0-18.0); BG VENT MODE HHN TX
[2020-06-18 08:25] LABS: BASOPHILS % 0.5 % (0.0-2.0); EOSINOPHILS % 4.4 % (0.0-5.0); HEMATOCRIT. 32.5 % (36.0-48.0); HEMOGLOBIN. 10.6 g/dL (12.0-16.0); LYMPHOCYTES % 31.7 % (20.0-50.0); MEAN CORPUSCULAR HEMOGLOBIN 28.2 pg (28.0-32.0); MEAN CORPUSCULAR VOLUME 86.7 fL (81.0-99.0); MONOCYTES % 6.8 % (2.0-8.0); NEUTROPHILS % 56.6 % (40.0-76.0); PLATELET 276 x1000/uL (130-400); RED BLOOD CELL COUNT 3.75 mill/uL (4.2-5.4); RED CELL DISTRIBUTION WIDTH 17.8 % (11.6-14.6)
[2020-06-18 08:32] LABS: CHLORIDE 109 mEq/L (98-107)
[2020-06-18 08:35] LABS: PROTHROMBIN TIME 10.9 sec (9.6-11.0)
[2020-06-18 08:36] LABS: ETHANOL BLOOD < 10 mg/dL
[2020-06-18 08:41] LABS: HCG SCREEN NEGATIVE
[2020-06-18] MEDS ORDERED: ALBUTEROL (0.083%) 2.5MG/3ML NEB HHN SCH (10:01)
[2020-06-18] MEDS ORDERED: MORPHINE SULFATE 4 MG/ML CPJ (NOT FOR IM USE) IV SCH (10:15)
[2020-06-18] MEDS ORDERED: MAGNESIUM 1 G PREMIX 100 ML IV SCH (10:15)
[2020-06-18 11:01] LABS: CLARITY URINE CLEAR (CLEAR); COLOR URINE YELLOW (YELLOW); KETONES URINE NEGATIVE (NEGATIVE); LEUKOCYTE ESTERASE URINE NEGATIVE (NEGATIVE); NITRITE URINE NEGATIVE (NEGATIVE); OCCULT BLOOD URINE NEGATIVE (NEGATIVE); PH URINE 6.5 (4.5-8.0); PROTEIN URINE NEGATIVE (NEGATIVE); SPECIFIC GRAVITY URINE 1.022 (1.005-1.030); UROBILINOGEN URINE 0.2 E.U./dL (0.2-1.0)
[2020-06-18 11:20] LABS: *BARBITURATES SCREEN URINE NEGATIVE (NEGATIVE); *BENZODIAZEPINES SCREEN URINE NEGATIVE (NEGATIVE); *COCAINE SCREEN URINE NEGATIVE (NEGATIVE); METHADONE URINE SCREEN NEGATIVE (NEGATIVE); PHENCYCLIDINE URINE SCREEN NEGATIVE (NEGATIVE)
[2020-06-18 11:27] LABS: *AMPHETAMINES SCREEN URINE PRESUMTIVE POSITIVE (NEGATIVE); CANNABINOID URINE SCREEN PRESUMTIVE POSITIVE (NEGATIVE); OPIATES URINE SCREEN PRESUMTIVE POSITIVE (NEGATIVE)
[2020-06-18] MEDS ORDERED: ENOXAPARIN 30MG/0.3ML SYR SUBCUT SCH (13:00)
[2020-06-18] MEDS ORDERED: POTASSIUM CHLORIDE 20MEQ TABLET SR PO NR (16:45)
[2020-06-18] MEDS: KETOROLAC 30MG/ML VIAL IV PRN (17:15)
[2020-06-18] MEDS: METHYLPREDNISOLONE SOD SUCC 40 MG/ML VIAL IV SCH ×2 (17:15→21:49)
[2020-06-18] MEDS: IPRATROPIUM/ALBUTEROL 0.5-3(2.5)MG/3ML NEB HHN SCH ×2 (18:56→20:31)
[2020-06-18] MEDS: ALBUTEROL (0.083%) 2.5MG/3ML NEB HHN PRN ×2 (18:57→22:30)
[2020-06-18 21:27] VITALS: BP 138/91
[2020-06-18 21:45] VITALS: BP 138/91
[2020-06-18] MEDS ORDERED: HYDROCODONE/ACETAMINOPHEN 5/325MG TABLET PO PRN (21:45)
[2020-06-18] MEDS: ONDANSETRON HCL 4MG/2ML INJ IV PRN (22:01)
[2020-06-18] MEDS: MORPHINE SULFATE 2 MG/ML CPJ (NOT FOR IM USE) IV PRN (22:01)
[2020-06-19] VITALS: BP 144/82
[2020-06-19] MEDS: ZOLPIDEM TARTRATE 5MG TABLET PO PRN (00:45)
[2020-06-19] MEDS: KETOROLAC 30MG/ML VIAL IV PRN ×3 (00:51→17:08)
[2020-06-19] MEDS: MORPHINE SULFATE 2 MG/ML CPJ (NOT FOR IM USE) IV PRN ×2 (03:39→08:15)
[2020-06-19 04:00] VITALS: BP 117/78
[2020-06-19] MEDS: ENOXAPARIN 30MG/0.3ML SYR SUBCUT SCH ×2 (05:49→21:13)
[2020-06-19] MEDS: METHYLPREDNISOLONE SOD SUCC 40 MG/ML VIAL IV SCH ×3 (06:43→21:14)
[2020-06-19 08:00] VITALS: BP 127/54
[2020-06-19] MEDS: FAMOTIDINE 20MG TABLET PO SCH ×2 (08:04→21:13)
[2020-06-19] MEDS: GABAPENTIN 100MG CAPSULE PO SCH ×2 (08:04→17:07)
[2020-06-19 08:51] LABS: BG BASE EXCESS -2.3 mmol/L (-2.0-2.0); BG CARBOXYHEMOGLOBIN 0.3 % (0.5-1.5); BG DEOXYHEMOGLOBIN 0.7 % (0.0-5.0); BG FRACTION INSPIRED OXYGEN 40; BG HCO3 ACT 22.6 mmol/L (22.0-26.0); BG METHEMOGLOBIN 0.4 % (0.0-1.5); BG OXYGEN SATURATION 99.3 % (92.0-98.5); BG OXYHEMOGLOBIN 98.6 % (94.0-97.0); BG PCO2 39.7 mmHg (35.0-45.0); BG PH 7.374 (7.350-7.450); BG SAMPLE SITE RIGHT RADIAL; BG TOTAL HEMOGLOBIN 10.7 g/dL (12.0-18.0); BG TOTAL RESPIRATORY RATE 25 b/min; BG VENT MODE MASK - BIPAP
[2020-06-19] MEDS: ALBUTEROL (0.083%) 2.5MG/3ML NEB HHN PRN (09:50)
[2020-06-19 12:00] VITALS: BP 106/45
[2020-06-19] MEDS: IPRATROPIUM/ALBUTEROL 0.5-3(2.5)MG/3ML NEB HHN SCH ×2 (12:34→16:00)
[2020-06-19 16:00] VITALS: BP 105/64
[2020-06-19 20:00] VITALS: BP 112/62
[2020-06-19] MEDS ORDERED: FAMOTIDINE 20MG TABLET PO SCH (21:00)
[2020-06-20] MEDS: ZOLPIDEM TARTRATE 5MG TABLET PO PRN ×2 (01:25→21:50)
[2020-06-20] MEDS: KETOROLAC 30MG/ML VIAL IV PRN ×4 (01:26→22:23)
[2020-06-20 04:00] VITALS: BP 110/58
[2020-06-20] MEDS: IPRATROPIUM/ALBUTEROL 0.5-3(2.5)MG/3ML NEB HHN SCH ×5 (04:16→20:57)
[2020-06-20] MEDS: METHYLPREDNISOLONE SOD SUCC 40 MG/ML VIAL IV SCH ×3 (05:47→22:22)
[2020-06-20 08:00] VITALS: BP 124/64
[2020-06-20] MEDS: FAMOTIDINE 20MG TABLET PO SCH ×2 (09:08→20:33)
[2020-06-20] MEDS: GABAPENTIN 100MG CAPSULE PO SCH ×2 (09:08→17:00)
[2020-06-20] MEDS: ENOXAPARIN 30MG/0.3ML SYR SUBCUT SCH ×2 (09:08→20:33)
[2020-06-20 12:00] VITALS: BP 119/59
[2020-06-20] MEDS ORDERED: OXYCODONE HCL/ACETAMINOPHEN 5/325MG TABLET PO PRN (13:45)
[2020-06-20] MEDS: OXYCODONE HCL 5MG TABLET PO PRN ×2 (15:28→20:35)
[2020-06-20 16:00] VITALS: BP 121/62
[2020-06-20 16:20] LABS: HEMOGLOBIN. 10.4 g/dL (12.0-16.0); MEAN CORPUSCULAR HEMOGLOBIN 28.3 pg (28.0-32.0); MEAN CORPUSCULAR VOLUME 87.1 fL (81.0-99.0); MEAN PLATELET VOLUME 10.1 fl (7.4-10.4); PLATELET 272 x1000/uL (130-400); RED BLOOD CELL COUNT 3.68 mill/uL (4.2-5.4); RED CELL DISTRIBUTION WIDTH 18.1 % (11.6-14.6)
[2020-06-20 16:38] LABS: CHLORIDE 105 mEq/L (98-107)
[2020-06-20 16:58] LABS: PLATELET ESTIMATE NORMAL
[2020-06-20] MEDS: METRONIDAZOLE 500MG TABLET PO SCH (17:00)
[2020-06-20] MEDS: MONTELUKAST SODIUM 10MG TABLET PO SCH (17:00)
[2020-06-20] MEDS: LORAZEPAM 2MG/ML CPJ IV PRN ×2 (17:00→23:30)
[2020-06-20] MEDS ORDERED: TERBUTALINE SULFATE 1MG/ML VIAL SUBCUT NR (17:15)
[2020-06-20 20:00] VITALS: BP 112/58
[2020-06-21] VITALS: BP 115/61
[2020-06-21] MEDS: IPRATROPIUM/ALBUTEROL 0.5-3(2.5)MG/3ML NEB HHN SCH ×6 (00:07→20:48)
[2020-06-21] MEDS: ONDANSETRON HCL 4MG/2ML INJ IV PRN (00:59)
[2020-06-21 04:00] VITALS: BP 117/67
[2020-06-21] MEDS: KETOROLAC 30MG/ML VIAL IV PRN ×3 (04:55→21:05)
[2020-06-21] MEDS: LORAZEPAM 2MG/ML CPJ IV PRN ×3 (06:13→22:08)
[2020-06-21] MEDS: METHYLPREDNISOLONE SOD SUCC 40 MG/ML VIAL IV SCH ×3 (06:13→22:08)
[2020-06-21 07:53] VITALS: BP 111/58
[2020-06-21] MEDS: METRONIDAZOLE 500MG TABLET PO SCH ×2 (09:11→16:59)
[2020-06-21] MEDS: ENOXAPARIN 30MG/0.3ML SYR SUBCUT SCH (09:11)
[2020-06-21] MEDS: GABAPENTIN 100MG CAPSULE PO SCH ×2 (09:11→16:59)
[2020-06-21] MEDS: FAMOTIDINE 20MG TABLET PO SCH ×2 (09:12→21:02)
[2020-06-21] MEDS ORDERED: GADOTERATE MEGLUMINE 5 MMOL/10 ML VIAL IV ONE (09:41)
[2020-06-21] MEDS: OXYCODONE HCL 5MG TABLET PO PRN (10:28)
[2020-06-21 11:59] VITALS: BP 114/60
[2020-06-21] MEDS: GUAIFENESIN/DM 600MG/30MG ER TAB 12HR PO SCH ×2 (12:37→21:02)
[2020-06-21] MEDS: BUDESONIDE 0.5MG/2ML NEB HHN SCH ×2 (12:49→20:49)
[2020-06-21 16:00] VITALS: BP 131/70
[2020-06-21] MEDS: MONTELUKAST SODIUM 10MG TABLET PO SCH (16:59)
[2020-06-21 20:00] VITALS: BP 126/69
[2020-06-22] VITALS: BP 143/81
[2020-06-22] MEDS: ZOLPIDEM TARTRATE 5MG TABLET PO PRN (00:05)
[2020-06-22] MEDS: IPRATROPIUM/ALBUTEROL 0.5-3(2.5)MG/3ML NEB HHN SCH ×6 (00:40→21:38)
[2020-06-22] MEDS: OXYCODONE HCL 5MG TABLET PO PRN ×4 (01:00→20:02)
[2020-06-22 04:00] VITALS: BP 145/87
[2020-06-22] MEDS: ONDANSETRON HCL 4MG/2ML INJ IV PRN ×2 (04:13→10:28)
[2020-06-22] MEDS: KETOROLAC 30MG/ML VIAL IV PRN ×4 (04:15→23:57)
[2020-06-22] MEDS: METHYLPREDNISOLONE SOD SUCC 40 MG/ML VIAL IV SCH ×3 (06:13→21:39)
[2020-06-22] MEDS: LORAZEPAM 2MG/ML CPJ IV PRN ×3 (06:13→18:28)
[2020-06-22 08:00] VITALS: BP 132/92
[2020-06-22] MEDS: BUDESONIDE 0.5MG/2ML NEB HHN SCH ×2 (08:28→21:38)
[2020-06-22] MEDS: ENOXAPARIN 40MG/0.4ML SYR SUBCUT SCH (09:02)
[2020-06-22] MEDS: METRONIDAZOLE 500MG TABLET PO SCH ×2 (09:02→17:26)
[2020-06-22] MEDS: GABAPENTIN 100MG CAPSULE PO SCH ×2 (09:02→17:26)
[2020-06-22] MEDS: FAMOTIDINE 20MG TABLET PO SCH ×2 (09:02→21:39)
[2020-06-22] MEDS: GUAIFENESIN/DM 600MG/30MG ER TAB 12HR PO SCH ×2 (09:04→21:39)
[2020-06-22] MEDS ORDERED: THROAT LOZENGES-BENZOCAINE/MENTH/CETYLPYRD CL LOZENGES MM PRN (11:45)
[2020-06-22] MEDS ORDERED: GUAIFENESIN/CODEINE 100-10MG/5ML UDC PO PRN (11:45)
[2020-06-22 12:00] VITALS: BP 136/70
[2020-06-22] MEDS ORDERED: GUAIFENESIN/CODEINE 200-20MG/10ML UDC PO PRN (13:02)
[2020-06-22 16:00] VITALS: BP 124/64
[2020-06-22] MEDS: MONTELUKAST SODIUM 10MG TABLET PO SCH (17:26)
[2020-06-22 20:00] VITALS: BP 126/63
[2020-06-23] VITALS: BP 120/73
[2020-06-23] MEDS: IPRATROPIUM/ALBUTEROL 0.5-3(2.5)MG/3ML NEB HHN SCH ×4 (01:04→11:58)
[2020-06-23 04:00] VITALS: BP 122/77
[2020-06-23] MEDS: LORAZEPAM 2MG/ML CPJ IV PRN ×2 (04:07→10:45)
[2020-06-23] MEDS: METHYLPREDNISOLONE SOD SUCC 40 MG/ML VIAL IV SCH (06:34)
[2020-06-23 08:00] VITALS: BP 135/68
[2020-06-23] MEDS: BUDESONIDE 0.5MG/2ML NEB HHN SCH (08:07)
[2020-06-23] MEDS: FAMOTIDINE 20MG TABLET PO SCH (09:02)
[2020-06-23] MEDS: GABAPENTIN 100MG CAPSULE PO SCH ×3 (09:02→13:00)
[2020-06-23] MEDS: METRONIDAZOLE 500MG TABLET PO SCH (09:02)
[2020-06-23] MEDS: GUAIFENESIN/DM 600MG/30MG ER TAB 12HR PO SCH (09:02)
[2020-06-23] MEDS: ENOXAPARIN 40MG/0.4ML SYR SUBCUT SCH (09:02)
[2020-06-23] MEDS: OXYCODONE HCL 5MG TABLET PO PRN (09:03)
[2020-06-23] MEDS ORDERED: DULOXETINE HCL 30MG DR CAPSULE PO SCH (09:30)
[2020-06-23] MEDS ORDERED: METHOCARBAMOL 500MG TABLET PO PRN (09:30)
[2020-06-23] MEDS ORDERED: LIDOCAINE 5% PATCH TOP SCH (11:00)
[2020-06-23] MEDS ORDERED: MOME13HF2 INH (11:16)
[2020-06-23] MEDS ORDERED: P20 MT (11:16)
[2020-06-23] MEDS ORDERED: MONT10TA21 PO (11:16)
[2020-06-23] MEDS ORDERED: ALBU18HF2 IH (11:16)
[2020-06-23 13:16] VITALS: BP 132/69
[2020-06-23 13:33] VITALS: BP 137/70
== END 2020-06-23 15:06 | disposition home or self-care (01) | DRG 133 ==
LOC: ER 07:15 → 7WST 10:50 → EDBEDREQ 10:56 → EDBEDREQSVC 10:56 → EDBEDREQTM 10:56 → EDBEDREQ 12:24 → ENRESERV 19:16 → 6WST 06-20 02:30
PROVIDERS: ADMIT Internal Medicine; ATTEND Internal Medicine
PROC: 5A09457 Assistance with Respiratory Ventilation, 24-96 Consecutive Hours, Continuous Positive Airway Pressure (ICD-10-PCS; principal; 2020-06-18)
DX: J96.01 Acute respiratory failure with hypoxia (principal); E87.8 Other disorders of electrolyte and fluid balance, not elsewhere classified; J45.51 Severe persistent asthma with (acute) exacerbation; M41.9 Scoliosis, unspecified; K21.9 Gastro-esophageal reflux disease without esophagitis; E66.9 Obesity, unspecified; E87.6 Hypokalemia; D64.9 Anemia, unspecified; M54.16 Radiculopathy, lumbar region; G89.29 Other chronic pain; M47.896 Other spondylosis, lumbar region; I10 Essential (primary) hypertension; F12.10 Cannabis abuse, uncomplicated; F15.10 Other stimulant abuse, uncomplicated; F17.200 Nicotine dependence, unspecified, uncomplicated; T59.891A Toxic effect of other specified gases, fumes and vapors, accidental (unintentional), initial encounter; Z76.5 Malingerer [conscious simulation]; Z68.31 Body mass index [BMI] 31.0-31.9, adult; Z88.6 Allergy status to analgesic agent; Z79.51 Long term (current) use of inhaled steroids; Z79.899 Other long term (current) drug therapy; Z71.51 Drug abuse counseling and surveillance of drug abuser; Z71.6 Tobacco abuse counseling; Z71.3 Dietary counseling and surveillance; Z87.01 Personal history of pneumonia (recurrent); Z82.49 Family history of ischemic heart disease and other diseases of the circulatory system; Y92.89 Other specified places as the place of occurrence of the external cause
CPT/HCPCS: 36415; 36600; 71045; 72158; 80048; 80053; 80305; 80320; 81003; 82375; 82805; 83605; 83880; 84145; 84484; 84703; 85025; 85379; 87070; 87430; 93005; 94640; 94660; 97116; 97162; 99285; A9577; C1893; J1650; J1885; J2060; J2270; J2405; J2920; J2930; J3105; J3475; J7626; U0003; G0480

== ENCOUNTER 2020-11-11 00:33 | Emergency (ER) | payer MEDICAID, OTHER ==
[~2020-11-11] VITALS: Ht 170.2 cm; Wt 137.0 kg
[~2020-11-11 00:33] MED LIST changes: +IBUP-2029 MT; -MED4 MT; +P20 MT
[2020-11-11] MEDS ORDERED: METHYLPREDNISOLONE SOD SUCC 125 MG/2 ML VIAL IV STA (01:03)
[2020-11-11] MEDS ORDERED: IPRATROPIUM BROMIDE (0.02%) 0.5MG/2.5ML NEB HHN STA (01:03)
[2020-11-11] MEDS ORDERED: MAGNESIUM 2 G PREMIX 50 ML IV ONE (01:15)
[2020-11-11] MEDS ORDERED: ALBUTEROL (0.083%) 2.5MG/3ML NEB HHN SCH (01:30)
[2020-11-11 02:26] LABS: BASOPHILS % 0.6 % (0.0-2.0); EOSINOPHILS % 0.3 % (0.0-5.0); HEMOGLOBIN. 11.2 g/dL (12.0-16.0); LYMPHOCYTES % 13.8 % (20.0-50.0); MEAN CORPUSCULAR HEMOGLOBIN 28.7 pg (28.0-32.0); MEAN CORPUSCULAR VOLUME 86.9 fL (81.0-99.0); MEAN PLATELET VOLUME 9.3 fl (7.4-10.4); MONOCYTES % 2.6 % (2.0-8.0); NEUTROPHILS % 82.7 % (40.0-76.0); PLATELET 262 x1000/uL (130-400); RED BLOOD CELL COUNT 3.92 mill/uL (4.2-5.4); RED CELL DISTRIBUTION WIDTH 17.8 % (11.6-14.6)
[2020-11-11 02:33] LABS: CHLORIDE 108 mEq/L (98-107)
[2020-11-11 02:36] LABS: HCG SCREEN NEGATIVE
[2020-11-11] MEDS ORDERED: ALBU6.7H9 INH (03:44)
[2020-11-11] MEDS ORDERED: P20 MT (03:44)
[2020-11-11] MEDS ORDERED: KETOROLAC 15MG/ML VIAL IV ONE (03:45)
[2020-11-11 04:25] VITALS: BP 128/86
== END 2020-11-11 04:33 | disposition home or self-care (01) ==
LOC: ER 00:33
DX: J45.901 Unspecified asthma with (acute) exacerbation (principal); R00.0 Tachycardia, unspecified; R03.0 Elevated blood-pressure reading, without diagnosis of hypertension; F12.90 Cannabis use, unspecified, uncomplicated
CPT/HCPCS: 36415; 71045; 80053; 84484; 84703; 85025; 93005; 94640; 96365; 96375; 99285; J1885; J2930; J3475; Z7610

== ENCOUNTER 2020-12-24 10:03 | Emergency (ER) | payer MEDICAID, OTHER ==
[~2020-12-24] VITALS: Ht 175.3 cm; Wt 91.0 kg
[~2020-12-24 10:03] MED LIST changes: +ALBU6.7H9 INH
[2020-12-24] MEDS ORDERED: ALBUTEROL (0.083%) 2.5MG/3ML NEB HHN STA (10:32)
[2020-12-24] MEDS ORDERED: PREDNISONE 20MG TABLET PO STA (10:32)
[2020-12-24] MEDS ORDERED: ONDANSETRON HCL 4MG/2ML INJ IV STA (10:32)
[2020-12-24] MEDS ORDERED: IPRATROPIUM BROMIDE (0.02%) 0.5MG/2.5ML NEB HHN STA (10:32)
[2020-12-24] MEDS ORDERED: MORPHINE SULFATE 4 MG/ML CPJ (NOT FOR IM USE) IV STA (10:32)
[2020-12-24] MEDS ORDERED: SODIUM CHLORIDE 0.9% 1,000 ML IV ONE (10:45)
[2020-12-24] MEDS ORDERED: FLUORESCEIN SODIUM 1MG/STRIP LEFTEYE ONE (10:45)
[2020-12-24] MEDS ORDERED: TETRACAINE 0.5% OPHTH DROPS 4ML LEFTEYE ONE (10:45)
[2020-12-24 12:12] LABS: BASOPHILS % 0.8 % (0.0-2.0); EOSINOPHILS % 1.1 % (0.0-5.0); HEMATOCRIT. 36.2 % (36.0-48.0); HEMOGLOBIN. 11.6 g/dL (12.0-16.0); LYMPHOCYTES % 30.1 % (20.0-50.0); MEAN CORPUSCULAR HEMOGLOBIN 28.6 pg (28.0-32.0); MEAN CORPUSCULAR VOLUME 89.5 fL (81.0-99.0); MEAN PLATELET VOLUME 9.5 fl (7.4-10.4); MONOCYTES % 12.2 % (2.0-8.0); NEUTROPHILS % 55.8 % (40.0-76.0); PLATELET 305 x1000/uL (130-400); RED BLOOD CELL COUNT 4.05 mill/uL (4.2-5.4); RED CELL DISTRIBUTION WIDTH 17.7 % (11.6-14.6)
[2020-12-24 12:27] LABS: CHLORIDE 103 mEq/L (98-107)
[2020-12-24 12:47] LABS: CLARITY URINE CLOUDY (CLEAR); COLOR URINE DARK YELLOW (YELLOW); KETONES URINE 1+ (NEGATIVE); LEUKOCYTE ESTERASE URINE TRACE (NEGATIVE); NITRITE URINE NEGATIVE (NEGATIVE); OCCULT BLOOD URINE 3+ (NEGATIVE); PROTEIN URINE 1+ (NEGATIVE); SPECIFIC GRAVITY URINE 1.036 (1.005-1.030)
[2020-12-24] MEDS ORDERED: KETOROLAC 15MG/ML VIAL IV ONE (13:30)
[2020-12-24 13:59] LABS: HCG SCREEN NEGATIVE
[2020-12-24] MEDS ORDERED: MELO-106 MT (14:49)
[2020-12-24 15:37] VITALS: BP 129/60
== END 2020-12-24 15:41 | disposition home or self-care (01) ==
LOC: ER 10:18
DX: S09.8XXA Other specified injuries of head, initial encounter (principal); W22.8XXA Striking against or struck by other objects, initial encounter; Y93.89 Activity, other specified; Y92.89 Other specified places as the place of occurrence of the external cause; Y99.8 Other external cause status; J45.909 Unspecified asthma, uncomplicated; F12.10 Cannabis abuse, uncomplicated; Z79.899 Other long term (current) drug therapy
CPT/HCPCS: 36415; 70450; 71045; 72100; 80053; 81003; 83690; 84703; 85025; 93005; 94640; 96361; 96374; 96375; 99285; J1885; J2270; J2405; J7030; J7512; Z7610

== ENCOUNTER 2020-12-27 14:06 | Emergency (ER) | payer MEDICAID ==
[~2020-12-27] VITALS: Ht 160 cm; Wt 90.0 kg
[~2020-12-27 14:06] MED LIST changes: +MELO-106 MT
[2020-12-27] MEDS ORDERED: KETOROLAC 60MG/2ML VIAL IM ONE (19:15)
[2020-12-27] MEDS ORDERED: LORAZEPAM 0.5MG TABLET PO ONE (19:15)
[2020-12-27] MEDS ORDERED: TETRACAINE 0.5% OPHTH DROPS 4ML LEFTEYE ONE (19:15)
[2020-12-27 19:27] VITALS: BP 140/87
[2020-12-27] MEDS ORDERED: FLUORESCEIN SODIUM 1MG/STRIP BOTHEYE ONE (19:45)
[2020-12-27] MEDS ORDERED: CYCL2DRO LEFTEYE (21:21)
[2020-12-27] MEDS ORDERED: OXYC-100 MT (21:21)
== END 2020-12-27 21:40 | disposition home or self-care (01) ==
LOC: ER 14:06
DX: H20.9 Unspecified iridocyclitis (principal); G89.29 Other chronic pain; M54.59 Other low back pain; Z96.89 Presence of other specified functional implants
CPT/HCPCS: 72100; 81025; 96372; 99283; J1885

== ENCOUNTER 2020-12-29 14:03 | Emergency (ER) | payer MEDICAID, OTHER ==
[~2020-12-29] VITALS: Ht 160 cm; Wt 7.0 kg
[~2020-12-29 14:03] MED LIST changes: +CYCL2DRO LEFTEYE; +OXYC-100 MT
[2020-12-29] MEDS ORDERED: IPRATROPIUM/ALBUTEROL 0.5-3(2.5)MG/3ML NEB HHN ONE (16:15)
[2020-12-29 16:18] LABS: CLARITY URINE CLOUDY (CLEAR); COLOR URINE DARK YELLOW (YELLOW); KETONES URINE TRACE (NEGATIVE); LEUKOCYTE ESTERASE URINE NEGATIVE (NEGATIVE); NITRITE URINE NEGATIVE (NEGATIVE); OCCULT BLOOD URINE NEGATIVE (NEGATIVE); PROTEIN URINE NEGATIVE (NEGATIVE); SPECIFIC GRAVITY URINE 1.033 (1.005-1.030)
[2020-12-29 16:43] LABS: *AMPHETAMINES SCREEN URINE NEGATIVE (NEGATIVE); *BENZODIAZEPINES SCREEN URINE NEGATIVE (NEGATIVE); *COCAINE SCREEN URINE NEGATIVE (NEGATIVE); METHADONE URINE SCREEN NEGATIVE (NEGATIVE); OPIATES URINE SCREEN NEGATIVE (NEGATIVE); PHENCYCLIDINE URINE SCREEN NEGATIVE (NEGATIVE)
[2020-12-29 16:46] LABS: *BARBITURATES SCREEN URINE PRESUMTIVE POSITIVE (NEGATIVE); CANNABINOID URINE SCREEN PRESUMTIVE POSITIVE (NEGATIVE)
[2020-12-29 16:58] LABS: BASOPHILS % 0.5 % (0.0-2.0); EOSINOPHILS % 1.5 % (0.0-5.0); HEMATOCRIT. 35.6 % (36.0-48.0); HEMOGLOBIN. 11.7 g/dL (12.0-16.0); LYMPHOCYTES % 26.8 % (20.0-50.0); MEAN CORPUSCULAR HEMOGLOBIN 28.5 pg (28.0-32.0); MEAN CORPUSCULAR VOLUME 86.9 fL (81.0-99.0); MONOCYTES % 7.5 % (2.0-8.0); NEUTROPHILS % 63.7 % (40.0-76.0); PLATELET 308 x1000/uL (130-400); RED CELL DISTRIBUTION WIDTH 17.9 % (11.6-14.6)
[2020-12-29 17:00] LABS: CHLORIDE 102 mEq/L (98-107)
[2020-12-29] MEDS ORDERED: IBUPROFEN 600MG TABLET PO ONE (19:15)
[2020-12-29] MEDS ORDERED: MORPHINE SULFATE 2 MG/ML CPJ (NOT FOR IM USE) IV ONE (22:00)
[2020-12-29 22:28] VITALS: BP 121/72
== END 2020-12-29 22:30 | disposition home or self-care (01) ==
LOC: ER 14:03
DX: M19.90 Unspecified osteoarthritis, unspecified site (principal); J45.901 Unspecified asthma with (acute) exacerbation; R11.10 Vomiting, unspecified; F12.10 Cannabis abuse, uncomplicated; E87.1 Hypo-osmolality and hyponatremia; D64.9 Anemia, unspecified; Z91.018 Allergy to other foods; Z88.6 Allergy status to analgesic agent; Z79.899 Other long term (current) drug therapy; Z98.890 Other specified postprocedural states
CPT/HCPCS: 36415; 71045; 72070; 72100; 80053; 80305; 81003; 81025; 83880; 84484; 85025; 85651; 93005; 94640; 96374; 99285; J2270; Z7610

== ENCOUNTER 2021-01-02 12:47 | Emergency (ER) | payer OTHER ==
[~2021-01-02] VITALS: Ht 152.4 cm; Wt 70.0 kg
[2021-01-02] MEDS ORDERED: ONDANSETRON HCL 4MG/2ML INJ IV STA (15:19)
[2021-01-02] MEDS ORDERED: IPRATROPIUM BROMIDE (0.02%) 0.5MG/2.5ML NEB HHN STA (15:19)
[2021-01-02] MEDS ORDERED: ALBUTEROL (0.083%) 2.5MG/3ML NEB HHN STA (15:19)
[2021-01-02] MEDS ORDERED: SODIUM CHLORIDE 0.9% 1,000 ML IV ONE (15:30)
[2021-01-02 15:50] LABS: BASOPHILS % 0.7 % (0.0-2.0); EOSINOPHILS % 4.3 % (0.0-5.0); HEMATOCRIT. 35.8 % (36.0-48.0); HEMOGLOBIN. 11.5 g/dL (12.0-16.0); LYMPHOCYTES % 37.6 % (20.0-50.0); MEAN CORPUSCULAR HEMOGLOBIN 28.4 pg (28.0-32.0); MEAN CORPUSCULAR VOLUME 87.8 fL (81.0-99.0); MEAN PLATELET VOLUME 9.1 fl (7.4-10.4); MONOCYTES % 10.1 % (2.0-8.0); NEUTROPHILS % 47.3 % (40.0-76.0); PLATELET 325 x1000/uL (130-400); RED BLOOD CELL COUNT 4.07 mill/uL (4.2-5.4); RED CELL DISTRIBUTION WIDTH 17.4 % (11.6-14.6)
[2021-01-02 15:54] LABS: CLARITY URINE CLEAR (CLEAR); COLOR URINE YELLOW (YELLOW); KETONES URINE TRACE (NEGATIVE); LEUKOCYTE ESTERASE URINE NEGATIVE (NEGATIVE); NITRITE URINE NEGATIVE (NEGATIVE); OCCULT BLOOD URINE NEGATIVE (NEGATIVE); PH URINE 7.5 (4.5-8.0); PROTEIN URINE NEGATIVE (NEGATIVE); SPECIFIC GRAVITY URINE 1.027 (1.005-1.030)
[2021-01-02 15:57] LABS: CHLORIDE 104 mEq/L (98-107)
[2021-01-02 16:01] LABS: ETHANOL BLOOD < 10 mg/dL
[2021-01-02 16:05] LABS: *AMPHETAMINES SCREEN URINE NEGATIVE (NEGATIVE); *BENZODIAZEPINES SCREEN URINE NEGATIVE (NEGATIVE); *COCAINE SCREEN URINE NEGATIVE (NEGATIVE); METHADONE URINE SCREEN NEGATIVE (NEGATIVE); OPIATES URINE SCREEN NEGATIVE (NEGATIVE); PHENCYCLIDINE URINE SCREEN NEGATIVE (NEGATIVE)
[2021-01-02 16:09] LABS: *BARBITURATES SCREEN URINE PRESUMTIVE POSITIVE (NEGATIVE); CANNABINOID URINE SCREEN PRESUMTIVE POSITIVE (NEGATIVE)
[2021-01-02] MEDS ORDERED: TRAMADOL 50MG TABLET PO STA (16:12)
[2021-01-02] MEDS ORDERED: ONDA4TAB5 PO ×3 (17:53→18:05)
[2021-01-02] MEDS ORDERED: ALBU18HF2 IH ×3 (17:53→18:05)
[2021-01-02] MEDS ORDERED: P20 PO ×3 (17:53→18:05)
[2021-01-02] MEDS ORDERED: TRAM50TA3 PO ×3 (17:53→18:05)
[2021-01-02 18:21] VITALS: BP 127/88
== END 2021-01-02 18:22 | disposition home or self-care (01) ==
LOC: ER 12:47
DX: J45.901 Unspecified asthma with (acute) exacerbation (principal); G89.29 Other chronic pain; M54.41 Lumbago with sciatica, right side; R51.9 Headache, unspecified; R11.10 Vomiting, unspecified; R42 Dizziness and giddiness; K21.9 Gastro-esophageal reflux disease without esophagitis; F41.9 Anxiety disorder, unspecified; F12.10 Cannabis abuse, uncomplicated; D64.9 Anemia, unspecified
CPT/HCPCS: 36415; 71045; 80053; 80305; 80320; 81003; 81025; 83690; 85025; 93005; 94640; 99285; J7030; G0480

== ENCOUNTER 2022-04-05 23:13 | Emergency (ER) | payer MEDICAID ==
[~2022-04-05] VITALS: Ht 165.1 cm; Wt 82.0 kg
[~2022-04-05 23:13] MED LIST changes: +ALBU6.7H3 INH; -ALBU6.7H9 INH; +BACL-141 MT; +LIDO700A15 TP; +ONDA4TAB5 PO; -P20 MT; +P20 PO; +TRAM50TA3 PO
[2022-04-06 00:40] LABS: BASOPHILS % 0.7 % (0.0-2.0); EOSINOPHILS % 1.1 % (0.0-5.0); HEMATOCRIT. 41.3 % (36.0-48.0); HEMOGLOBIN. 13.2 g/dL (12.0-16.0); LYMPHOCYTES % 31.3 % (20.0-50.0); MEAN CORPUSCULAR HEMOGLOBIN 31.2 pg (28.0-32.0); MEAN CORPUSCULAR VOLUME 97.2 fL (81.0-99.0); MEAN PLATELET VOLUME 9.1 fl (7.4-10.4); MONOCYTES % 9.9 % (2.0-8.0); PLATELET 256 x1000/uL (130-400); RED BLOOD CELL COUNT 4.25 mill/uL (4.2-5.4); RED CELL DISTRIBUTION WIDTH 17.8 % (11.6-14.6)
[2022-04-06] MEDS ORDERED: MORPHINE SULFATE 4 MG/ML CPJ (NOT FOR IM USE) IV STA ×2 (01:16→05:18)
[2022-04-06] MEDS ORDERED: ONDANSETRON HCL 4MG/2ML INJ IV STA (01:16)
[2022-04-06 01:22] LABS: CHLORIDE 109 mEq/L (98-107)
[2022-04-06] MEDS ORDERED: PREDNISONE 20MG TABLET PO ONE (01:30)
[2022-04-06] MEDS ORDERED: ALBUTEROL (0.083%) 2.5MG/3ML NEB HHN ONE ×2 (01:30→04:45)
[2022-04-06] MEDS ORDERED: DIPHENHYDRAMINE 50MG/ML VIAL IV ONE (03:00)
[2022-04-06] MEDS ORDERED: MORPHINE SULFATE 4 MG/ML CPJ (NOT FOR IM USE) IV NR (03:00)
[2022-04-06] MEDS ORDERED: ONDANSETRON HCL 4MG/2ML INJ IV NR (03:15)
[2022-04-06] MEDS ORDERED: ALBU18HF2 IH (04:44)
[2022-04-06] MEDS ORDERED: CYCL10TA21 MT (04:44)
[2022-04-06] MEDS ORDERED: NAPR-1176 MT ×2 (04:44)
[2022-04-06] MEDS ORDERED: P50 MT (04:44)
[2022-04-06] MEDS: KETOROLAC 15MG/ML VIAL IV ONE ×2 (04:58→05:13)
[2022-04-06] MEDS ORDERED: CYCLOBENZAPRINE 10MG TABLET PO ONE (05:15)
[2022-04-06 05:37] VITALS: BP 126/65
== END 2022-04-06 06:08 | disposition home or self-care (01) ==
LOC: ER 23:13
DX: M54.50 Low back pain, unspecified (principal); G89.11 Acute pain due to trauma; J44.1 Chronic obstructive pulmonary disease with (acute) exacerbation; J45.901 Unspecified asthma with (acute) exacerbation; R53.1 Weakness; M54.6 Pain in thoracic spine; Z91.81 History of falling; R94.31 Abnormal electrocardiogram [ECG] [EKG]; G40.909 Epilepsy, unspecified, not intractable, without status epilepticus; F17.210 Nicotine dependence, cigarettes, uncomplicated; Z98.890 Other specified postprocedural states; Z88.6 Allergy status to analgesic agent; Z88.8 Allergy status to other drugs, medicaments and biological substances; Z91.018 Allergy to other foods
CPT/HCPCS: 36415; 71045; 72128; 72131; 80053; 81025; 84484; 85025; 93005; 94640; 96374; 96375; 96376; 99285; C1893; J1200; J1885; J2270; J2405; J7512; Z7610

== ENCOUNTER 2022-04-22 21:59 | Inpatient (IN) | payer MEDICAID, OTHER ==
[~2022-04-22] VITALS: Ht 167.6 cm; Wt 100.3 kg
[~2022-04-22 21:59] MED LIST changes: +CYCL10TA21 MT; +ETOMIDATE 2MG/ML 10ML VIAL IV ONE; +MOME13HF12 INH; -MOME13HF2 INH; +MONT-46 PO; -MONT10TA21 PO; +P50 MT
[2022-04-22] MEDS ORDERED: IPRATROPIUM BROMIDE (0.02%) 0.5MG/2.5ML NEB HHN STA (22:01)
[2022-04-22] MEDS ORDERED: ALBUTEROL (0.083%) 2.5MG/3ML NEB HHN STA (22:01)
[2022-04-22] MEDS ORDERED: METHYLPREDNISOLONE SOD SUCC 125 MG/2 ML VIAL IV STA (22:01)
[2022-04-22] MEDS ORDERED: MAGNESIUM 2 G PREMIX 50 ML IV ONE (22:15)
[2022-04-22 22:53] LABS: BASOPHILS % 0.6 % (0.0-2.0); EOSINOPHILS % 3.2 % (0.0-5.0); HEMATOCRIT. 39.6 % (36.0-48.0); LYMPHOCYTES % 38.2 % (20.0-50.0); MEAN CORPUSCULAR HEMOGLOBIN 30.9 pg (28.0-32.0); MEAN PLATELET VOLUME 9.4 fl (7.4-10.4); MONOCYTES % 5.4 % (2.0-8.0); NEUTROPHILS % 52.6 % (40.0-76.0); PLATELET 324 x1000/uL (130-400); RED BLOOD CELL COUNT 4.21 mill/uL (4.2-5.4); RED CELL DISTRIBUTION WIDTH 16.4 % (11.6-14.6)
[2022-04-22 22:58] LABS: CHLORIDE 105 mEq/L (98-107)
[2022-04-22 22:59] LABS: HCG SCREEN NEGATIVE; PARTIAL THROMBOPLASTIN TIME 22.6 sec (23.4-31.0); PROTHROMBIN TIME 10.9 sec (9.6-11.0)
[2022-04-22 23:09] LABS: ETHANOL BLOOD < 10 mg/dL
[2022-04-22 23:17] LABS: BG CARBOXYHEMOGLOBIN 0.5 % (0.5-1.5); BG DEOXYHEMOGLOBIN 0.4 % (0.0-5.0); BG FRACTION INSPIRED OXYGEN 100; BG HCO3 ACT 30.2 mmol/L (22.0-26.0); BG METHEMOGLOBIN 0.5 % (0.0-1.5); BG OXYGEN SATURATION 99.6 % (92.0-98.5); BG OXYHEMOGLOBIN 98.6 % (94.0-97.0); BG PCO2 132.5 mmHg (35.0-45.0); BG PH 6.976 (7.350-7.450); BG PO2 481.2 mmHg (75.0-100.0); BG SAMPLE SITE RIGHT RADIAL; BG TOTAL HEMOGLOBIN 13.9 g/dL (12.0-18.0); BG VENT MODE MASK - BIPAP
[2022-04-22] MEDS ORDERED: PROPOFOL 10MG/ML 100ML 100 ML IV ONE (23:30)
[2022-04-22] MEDS ORDERED: ETOMIDATE 2MG/ML 10ML VIAL IV ONE (23:30)
[2022-04-22] MEDS ORDERED: ROCURONIUM BROMIDE 10MG/ML VIAL 5ML IV ONE (23:30)
[2022-04-23] VITALS (14 sets, daily range): BP systolic 94–127; BP diastolic 52–89
[2022-04-23] MEDS ORDERED: IPRATROPIUM BROMIDE (0.02%) 0.5MG/2.5ML NEB HHN STA (00:12)
[2022-04-23] MEDS ORDERED: ALBUTEROL (0.083%) 2.5MG/3ML NEB HHN STA (00:12)
[2022-04-23] MEDS ORDERED: EPINEPHRINE 1:1000 1 MG/ML AMP IM ONE (00:15)
[2022-04-23 01:51] LABS: CLARITY URINE CLEAR (CLEAR); COLOR URINE YELLOW (YELLOW); KETONES URINE NEGATIVE (NEGATIVE); LEUKOCYTE ESTERASE URINE NEGATIVE (NEGATIVE); NITRITE URINE NEGATIVE (NEGATIVE); OCCULT BLOOD URINE NEGATIVE (NEGATIVE); PH URINE 5.5 (4.5-8.0); PROTEIN URINE 1+ (NEGATIVE); SPECIFIC GRAVITY URINE 1.032 (1.005-1.030); UROBILINOGEN URINE 0.2 E.U./dL (0.2-1.0)
[2022-04-23] MEDS ORDERED: MIDAZOLAM HCL 100 MG in DEXT 5% WATER 80 ML IV ONE (02:00)
[2022-04-23] MEDS ORDERED: EPINEPHRINE 1:1000 1 MG/ML AMP IM NR (02:15)
[2022-04-23] MEDS ORDERED: PROPOFOL 10MG/ML 100ML 100 ML IV PRN (02:30)
[2022-04-23] MEDS ORDERED: PROPOFOL 10MG/ML 100ML 100 ML IV ONE (02:30)
[2022-04-23 03:23] LABS: *AMPHETAMINES SCREEN URINE NEGATIVE (NEGATIVE); *BARBITURATES SCREEN URINE NEGATIVE (NEGATIVE); *BENZODIAZEPINES SCREEN URINE NEGATIVE (NEGATIVE); *COCAINE SCREEN URINE NEGATIVE (NEGATIVE); METHADONE URINE SCREEN NEGATIVE (NEGATIVE); PHENCYCLIDINE URINE SCREEN NEGATIVE (NEGATIVE)
[2022-04-23 03:27] LABS: CANNABINOID URINE SCREEN PRESUMTIVE POSITIVE (NEGATIVE); OPIATES URINE SCREEN PRESUMTIVE POSITIVE (NEGATIVE)
[2022-04-23] MEDS ORDERED: IPRATROPIUM/ALBUTEROL 0.5-3(2.5)MG/3ML NEB HHN PRN (08:00)
[2022-04-23] MEDS: IPRATROPIUM/ALBUTEROL 0.5-3(2.5)MG/3ML NEB HHN SCH ×5 (08:24→23:40)
[2022-04-23 09:07] LABS: BG BASE EXCESS -3.3 mmol/L (-2.0-2.0); BG CARBOXYHEMOGLOBIN 0.2 % (0.5-1.5); BG DEOXYHEMOGLOBIN 0.6 % (0.0-5.0); BG FRACTION INSPIRED OXYGEN 50; BG HCO3 ACT 21.4 mmol/L (22.0-26.0); BG METHEMOGLOBIN 0.5 % (0.0-1.5); BG OXYGEN SATURATION 99.4 % (92.0-98.5); BG OXYHEMOGLOBIN 98.7 % (94.0-97.0); BG PCO2 37.5 mmHg (35.0-45.0); BG PH 7.374 (7.350-7.450); BG PO2 219.1 mmHg (75.0-100.0); BG SAMPLE SITE RIGHT RADIAL; BG TOTAL HEMOGLOBIN 13.5 g/dL (12.0-18.0); BG VENT MODE VENT - AC
[2022-04-23] MEDS: METHYLPREDNISOLONE SOD SUCC 125 MG/2 ML VIAL IV SCH ×3 (11:45→22:19)
[2022-04-23] MEDS ORDERED: METHYLPREDNISOLONE SOD SUCC 125 MG/2 ML VIAL IV SCH (14:00)
[2022-04-23] MEDS: PROPOFOL 10MG/ML 100ML 100 ML IV PRN ×2 (16:55→21:19)
[2022-04-23] MEDS ORDERED: PANTOPRAZOLE SODIUM 40 MG/VIAL IV SCH (17:00)
[2022-04-23] MEDS ORDERED: FENTANYL CITRATE/PF 2,500 MCG in SODIUM CHLORIDE 0.9% 200 ML IV PRN (17:00)
[2022-04-23] MEDS: LEVOFLOXACIN 750MG PREMIX 150 ML IV SCH (18:29)
[2022-04-23] MEDS: ENOXAPARIN 30MG/0.3ML SYR SUBCUT SCH (18:30)
[2022-04-24] VITALS (49 sets, daily range): BP systolic 100–170; BP diastolic 34–98
[2022-04-24] MEDS: PROPOFOL 10MG/ML 100ML 100 ML IV PRN ×3 (01:36→09:43)
[2022-04-24] MEDS: IPRATROPIUM/ALBUTEROL 0.5-3(2.5)MG/3ML NEB HHN SCH ×5 (04:08→20:55)
[2022-04-24 05:36] LABS: HEMATOCRIT. 36.8 % (36.0-48.0); HEMOGLOBIN. 12.1 g/dL (12.0-16.0); MEAN CORPUSCULAR HEMOGLOBIN 30.6 pg (28.0-32.0); MEAN CORPUSCULAR VOLUME 93.3 fL (81.0-99.0); MEAN PLATELET VOLUME 9.6 fl (7.4-10.4); PLATELET 256 x1000/uL (130-400); RED BLOOD CELL COUNT 3.94 mill/uL (4.2-5.4); RED CELL DISTRIBUTION WIDTH 17.3 % (11.6-14.6)
[2022-04-24] MEDS: ENOXAPARIN 30MG/0.3ML SYR SUBCUT SCH ×2 (05:53→17:37)
[2022-04-24] MEDS: METHYLPREDNISOLONE SOD SUCC 125 MG/2 ML VIAL IV SCH ×3 (05:53→23:10)
[2022-04-24 10:16] LABS: BG BASE EXCESS -0.1 mmol/L (-2.0-2.0); BG CARBOXYHEMOGLOBIN 0.3 % (0.5-1.5); BG DEOXYHEMOGLOBIN 3.2 % (0.0-5.0); BG FRACTION INSPIRED OXYGEN 30; BG HCO3 ACT 23.8 mmol/L (22.0-26.0); BG METHEMOGLOBIN 0.4 % (0.0-1.5); BG OXYGEN SATURATION 96.8 % (92.0-98.5); BG OXYHEMOGLOBIN 96.1 % (94.0-97.0); BG PCO2 36.4 mmHg (35.0-45.0); BG PH 7.434 (7.350-7.450); BG PO2 89.7 mmHg (75.0-100.0); BG SAMPLE SITE RIGHT BRACHIAL; BG TOTAL HEMOGLOBIN 12.4 g/dL (12.0-18.0); BG VENT MODE VENT - AC
[2022-04-24] MEDS: FAMOTIDINE 20MG/2ML VIAL IV SCH ×2 (10:41→20:25)
[2022-04-24 10:58] LABS: CHLORIDE 108 mEq/L (98-107)
[2022-04-24] MEDS: LORATADINE 10MG TABLET PO SCH (11:15)
[2022-04-24 11:43] LABS: PLATELET ESTIMATE NORMAL
[2022-04-24 13:11] LABS: BG BASE EXCESS -1.6 mmol/L (-2.0-2.0); BG CARBOXYHEMOGLOBIN 0.1 % (0.5-1.5); BG DEOXYHEMOGLOBIN 3.9 % (0.0-5.0); BG FRACTION INSPIRED OXYGEN 30; BG HCO3 ACT 24.1 mmol/L (22.0-26.0); BG METHEMOGLOBIN 0.5 % (0.0-1.5); BG OXYGEN SATURATION 96.1 % (92.0-98.5); BG OXYHEMOGLOBIN 95.5 % (94.0-97.0); BG PCO2 44.5 mmHg (35.0-45.0); BG PH 7.352 (7.350-7.450); BG PO2 89.7 mmHg (75.0-100.0); BG SAMPLE SITE RIGHT RADIAL; BG TOTAL HEMOGLOBIN 13.5 g/dL (12.0-18.0); BG VENT MODE VENT - CPAP
[2022-04-24] MEDS ORDERED: IBUPROFEN 600MG TABLET PO PRN (14:15)
[2022-04-24] MEDS: MORPHINE SULFATE 2 MG/ML CPJ (NOT FOR IM USE) IV PRN ×2 (15:24→20:26)
[2022-04-24] MEDS ORDERED: NALOXONE HCL 0.4MG/ML VIAL IV PRN (15:30)
[2022-04-24] MEDS: DIPHENHYDRAMINE 50MG/ML VIAL IV PRN ×2 (16:19→20:25)
[2022-04-24] MEDS: MONTELUKAST SODIUM 10MG TABLET PO SCH (17:36)
[2022-04-24] MEDS: LEVOFLOXACIN 750MG PREMIX 150 ML IV SCH (17:37)
[2022-04-25] VITALS (36 sets, daily range): BP systolic 92–169; BP diastolic 50–112
[2022-04-25] MEDS: IPRATROPIUM/ALBUTEROL 0.5-3(2.5)MG/3ML NEB HHN SCH ×4 (00:44→12:47)
[2022-04-25] MEDS: DIPHENHYDRAMINE 50MG/ML VIAL IV PRN ×6 (00:49→21:24)
[2022-04-25] MEDS: MORPHINE SULFATE 2 MG/ML CPJ (NOT FOR IM USE) IV PRN ×6 (00:50→21:25)
[2022-04-25] MEDS: ENOXAPARIN 30MG/0.3ML SYR SUBCUT SCH ×2 (05:15→17:33)
[2022-04-25] MEDS: METHYLPREDNISOLONE SOD SUCC 125 MG/2 ML VIAL IV SCH (05:15)
[2022-04-25] MEDS: LORATADINE 10MG TABLET PO SCH (09:36)
[2022-04-25] MEDS: FAMOTIDINE 20MG/2ML VIAL IV SCH ×2 (09:36→20:41)
[2022-04-25] MEDS: BUDESONIDE 0.5MG/2ML NEB HHN SCH ×2 (15:53→23:09)
[2022-04-25] MEDS: PREDNISONE 20MG TABLET PO SCH (17:32)
[2022-04-25] MEDS: MONTELUKAST SODIUM 10MG TABLET PO SCH (17:32)
[2022-04-25] MEDS: LEVOFLOXACIN 750MG PREMIX 150 ML IV SCH (17:33)
[2022-04-25] MEDS ORDERED: IPRATROPIUM BROMIDE (0.02%) 0.5MG/2.5ML NEB HHN PRN (17:45)
[2022-04-25] MEDS ORDERED: ALBUTEROL (0.083%) 2.5MG/3ML NEB HHN PRN (17:45)
[2022-04-25] MEDS ORDERED: IPRATROPIUM/ALBUTEROL 0.5-3(2.5)MG/3ML NEB HHN SCH (18:00)
[2022-04-25] MEDS: IPRATROPIUM BROMIDE (0.02%) 0.5MG/2.5ML NEB HHN SCH (23:08)
[2022-04-25] MEDS: ALBUTEROL (0.083%) 2.5MG/3ML NEB HHN SCH (23:08)
[2022-04-26] VITALS: BP 146/90
[2022-04-26] MEDS: DIPHENHYDRAMINE 50MG/ML VIAL IV PRN ×5 (01:32→21:50)
[2022-04-26] MEDS: MORPHINE SULFATE 2 MG/ML CPJ (NOT FOR IM USE) IV PRN ×5 (01:33→21:07)
[2022-04-26 04:00] VITALS: BP 139/87
[2022-04-26] MEDS: IPRATROPIUM BROMIDE (0.02%) 0.5MG/2.5ML NEB HHN SCH ×4 (04:07→21:28)
[2022-04-26] MEDS: ALBUTEROL (0.083%) 2.5MG/3ML NEB HHN SCH ×4 (04:07→21:28)
[2022-04-26] MEDS: ENOXAPARIN 30MG/0.3ML SYR SUBCUT SCH ×2 (05:35→17:18)
[2022-04-26 08:14] LABS: BASOPHILS % 0.2 % (0.0-2.0); HEMATOCRIT. 37.4 % (36.0-48.0); HEMOGLOBIN. 12.5 g/dL (12.0-16.0); LYMPHOCYTES % 20.5 % (20.0-50.0); MEAN CORPUSCULAR HEMOGLOBIN 31.3 pg (28.0-32.0); MEAN PLATELET VOLUME 9.9 fl (7.4-10.4); MONOCYTES % 10.6 % (2.0-8.0); NEUTROPHILS % 68.7 % (40.0-76.0); PLATELET 204 x1000/uL (130-400); RED BLOOD CELL COUNT 3.98 mill/uL (4.2-5.4); RED CELL DISTRIBUTION WIDTH 16.7 % (11.6-14.6)
[2022-04-26 08:54] LABS: CHLORIDE 106 mEq/L (98-107)
[2022-04-26] MEDS: FAMOTIDINE 20MG/2ML VIAL IV SCH ×2 (08:56→20:47)
[2022-04-26] MEDS: LORATADINE 10MG TABLET PO SCH (08:56)
[2022-04-26] MEDS: PREDNISONE 20MG TABLET PO SCH ×2 (08:56→17:18)
[2022-04-26] MEDS: BUDESONIDE 0.5MG/2ML NEB HHN SCH ×2 (09:20→21:28)
[2022-04-26 12:00] VITALS: BP 163/64
[2022-04-26] MEDS: DICLOFENAC SODIUM 1% GEL 50GM TOP SCH ×3 (13:37→21:00)
[2022-04-26] MEDS: LIDOCAINE HCL 4% CREAM 76GM TUBE TP SCH (13:37)
[2022-04-26 16:00] VITALS: BP 142/79
[2022-04-26] MEDS: LEVOFLOXACIN 750MG PREMIX 150 ML IV SCH (17:17)
[2022-04-26] MEDS: MONTELUKAST SODIUM 10MG TABLET PO SCH (17:19)
[2022-04-26 20:00] VITALS: BP 127/82
[2022-04-27] VITALS: BP 142/87
[2022-04-27] MEDS: IPRATROPIUM BROMIDE (0.02%) 0.5MG/2.5ML NEB HHN SCH ×4 (03:52→19:52)
[2022-04-27] MEDS: ALBUTEROL (0.083%) 2.5MG/3ML NEB HHN SCH ×4 (03:52→19:53)
[2022-04-27] MEDS: MORPHINE SULFATE 2 MG/ML CPJ (NOT FOR IM USE) IV PRN ×5 (04:09→22:11)
[2022-04-27 04:15] VITALS: BP 139/78
[2022-04-27] MEDS: DIPHENHYDRAMINE 50MG/ML VIAL IV PRN ×5 (04:29→22:08)
[2022-04-27] MEDS: ENOXAPARIN 30MG/0.3ML SYR SUBCUT SCH ×2 (05:41→17:38)
[2022-04-27 08:00] VITALS: BP 150/77
[2022-04-27] MEDS: PREDNISONE 20MG TABLET PO SCH (08:59)
[2022-04-27] MEDS: FAMOTIDINE 20MG/2ML VIAL IV SCH ×2 (09:00→21:22)
[2022-04-27] MEDS: LORATADINE 10MG TABLET PO SCH (09:00)
[2022-04-27] MEDS: DICLOFENAC SODIUM 1% GEL 50GM TOP SCH ×4 (09:01→21:00)
[2022-04-27] MEDS: LIDOCAINE HCL 4% CREAM 76GM TUBE TP SCH (09:01)
[2022-04-27] MEDS: BUDESONIDE 0.5MG/2ML NEB HHN SCH ×2 (09:57→19:53)
[2022-04-27 12:00] VITALS: BP 141/91
[2022-04-27] MEDS: METHYLPREDNISOLONE SOD SUCC 40 MG/ML VIAL IV SCH ×2 (13:35→21:22)
[2022-04-27 16:00] VITALS: BP 149/83
[2022-04-27] MEDS: MONTELUKAST SODIUM 10MG TABLET PO SCH (17:37)
[2022-04-27] MEDS: LEVOFLOXACIN 750MG PREMIX 150 ML IV SCH (17:38)
[2022-04-27 20:00] VITALS: BP 116/71
[2022-04-28] VITALS: BP 134/75
[2022-04-28] MEDS: ALBUTEROL (0.083%) 2.5MG/3ML NEB HHN SCH ×4 (01:48→21:15)
[2022-04-28] MEDS: IPRATROPIUM BROMIDE (0.02%) 0.5MG/2.5ML NEB HHN SCH ×4 (01:48→21:16)
[2022-04-28] MEDS: DIPHENHYDRAMINE 50MG/ML VIAL IV PRN ×4 (03:18→20:56)
[2022-04-28] MEDS: MORPHINE SULFATE 2 MG/ML CPJ (NOT FOR IM USE) IV PRN ×4 (03:19→20:57)
[2022-04-28 04:00] VITALS: BP 132/89
[2022-04-28] MEDS: METHYLPREDNISOLONE SOD SUCC 40 MG/ML VIAL IV SCH ×3 (05:47→20:55)
[2022-04-28] MEDS: ENOXAPARIN 30MG/0.3ML SYR SUBCUT SCH ×2 (06:44→18:00)
[2022-04-28 07:02] LABS: BASOPHILS % 0.2 % (0.0-2.0); HEMATOCRIT. 41.1 % (36.0-48.0); HEMOGLOBIN. 13.7 g/dL (12.0-16.0); LYMPHOCYTES % 9.7 % (20.0-50.0); MEAN CORPUSCULAR VOLUME 92.9 fL (81.0-99.0); MEAN PLATELET VOLUME 9.5 fl (7.4-10.4); MONOCYTES % 8.4 % (2.0-8.0); NEUTROPHILS % 81.7 % (40.0-76.0); PLATELET 226 x1000/uL (130-400); RED BLOOD CELL COUNT 4.43 mill/uL (4.2-5.4); RED CELL DISTRIBUTION WIDTH 16.7 % (11.6-14.6)
[2022-04-28 07:29] LABS: CHLORIDE 107 mEq/L (98-107)
[2022-04-28] MEDS: BUDESONIDE 0.5MG/2ML NEB HHN SCH (07:47)
[2022-04-28 08:22] VITALS: BP 122/81
[2022-04-28] MEDS: LORATADINE 10MG TABLET PO SCH (08:57)
[2022-04-28] MEDS: FAMOTIDINE 20MG/2ML VIAL IV SCH ×2 (08:57→20:56)
[2022-04-28] MEDS: DICLOFENAC SODIUM 1% GEL 50GM TOP SCH ×4 (09:00→20:58)
[2022-04-28] MEDS: LIDOCAINE HCL 4% CREAM 76GM TUBE TP SCH (09:00)
[2022-04-28] MEDS ORDERED: DILTIAZEM HCL 5MG/ML 5ML VIAL IV SCH (10:45)
[2022-04-28 12:00] VITALS: BP 137/89
[2022-04-28] MEDS: DILTIAZEM HCL 60MG TABLET PO SCH ×2 (15:54→21:52)
[2022-04-28 16:00] VITALS: BP 130/85
[2022-04-28] MEDS: MONTELUKAST SODIUM 10MG TABLET PO SCH (16:53)
[2022-04-28] MEDS: LEVOFLOXACIN 750MG PREMIX 150 ML IV SCH (17:06)
[2022-04-28 20:00] VITALS: BP 130/79
[2022-04-29] VITALS: BP 123/57
[2022-04-29] MEDS: ALBUTEROL (0.083%) 2.5MG/3ML NEB HHN SCH ×3 (01:09→14:59)
[2022-04-29] MEDS: IPRATROPIUM BROMIDE (0.02%) 0.5MG/2.5ML NEB HHN SCH ×3 (01:09→14:59)
[2022-04-29] MEDS: DIPHENHYDRAMINE 50MG/ML VIAL IV PRN ×2 (01:35→09:03)
[2022-04-29] MEDS: MORPHINE SULFATE 2 MG/ML CPJ (NOT FOR IM USE) IV PRN ×3 (01:36→13:20)
[2022-04-29 04:00] VITALS: BP 130/79
[2022-04-29] MEDS: METHYLPREDNISOLONE SOD SUCC 40 MG/ML VIAL IV SCH ×2 (05:40→14:04)
[2022-04-29] MEDS: ENOXAPARIN 30MG/0.3ML SYR SUBCUT SCH (05:42)
[2022-04-29] MEDS: DILTIAZEM HCL 60MG TABLET PO SCH ×2 (05:42→14:09)
[2022-04-29 06:44] LABS: HEMOGLOBIN. 12.8 g/dL (12.0-16.0); MEAN CORPUSCULAR HEMOGLOBIN 30.2 pg (28.0-32.0); MEAN CORPUSCULAR VOLUME 92.4 fL (81.0-99.0); MEAN PLATELET VOLUME 9.8 fl (7.4-10.4); PLATELET 212 x1000/uL (130-400); RED BLOOD CELL COUNT 4.22 mill/uL (4.2-5.4); RED CELL DISTRIBUTION WIDTH 17.2 % (11.6-14.6)
[2022-04-29 07:58] LABS: CHLORIDE 107 mEq/L (98-107)
[2022-04-29 08:00] VITALS: BP 114/77
[2022-04-29] MEDS: DICLOFENAC SODIUM 1% GEL 50GM TOP SCH ×2 (08:42→13:00)
[2022-04-29] MEDS: FAMOTIDINE 20MG/2ML VIAL IV SCH (08:42)
[2022-04-29] MEDS: LORATADINE 10MG TABLET PO SCH (08:42)
[2022-04-29] MEDS: LIDOCAINE HCL 4% CREAM 76GM TUBE TP SCH (09:00)
[2022-04-29 12:00] VITALS: BP 176/84
[2022-04-29] MEDS ORDERED: FAMO20TA8 MT (13:24)
[2022-04-29] MEDS ORDERED: ALBU18HF2 IH (13:24)
[2022-04-29] MEDS ORDERED: DILT60TA35 PO (13:24)
[2022-04-29] MEDS ORDERED: MONT-46 PO (13:24)
[2022-04-29] MEDS ORDERED: P20 PO (13:24)
[2022-04-29] MEDS ORDERED: CLAR10 PO (13:24)
[2022-04-29 15:10] LABS: FOLIC ACID (FOLATE) SERUM 5.4 ng/mL (>5.38)
[2022-04-29 16:00] VITALS: BP 125/74
[2022-04-29 17:22] LABS: PLATELET ESTIMATE NORMAL
[2022-04-29] MEDS ORDERED: FAMOTIDINE 20MG TABLET PO SCH (21:00)
== END 2022-04-29 16:40 | disposition home or self-care (01) | DRG 133 ==
LOC: ER 21:59 → MICUSO 04-23 00:21 → CVICU 04-23 16:40 → 7WST 04-25 16:45
PROVIDERS: ADMIT Internal Medicine; ATTEND Internal Medicine
PROC: 0BH17EZ Insertion of Endotracheal Airway into Trachea, Via Natural or Artificial Opening (ICD-10-PCS; principal; 2022-04-23)
PROC: 5A1945Z Respiratory Ventilation, 24-96 Consecutive Hours (ICD-10-PCS; 2022-04-23)
PROC: 5A09357 Assistance with Respiratory Ventilation, Less than 24 Consecutive Hours, Continuous Positive Airway Pressure (ICD-10-PCS; 2022-04-23)
PROC: 02HV33Z Insertion of Infusion Device into Superior Vena Cava, Percutaneous Approach (ICD-10-PCS; 2022-04-25)
DX: J96.01 Acute respiratory failure with hypoxia (principal); G93.41 Metabolic encephalopathy; J45.901 Unspecified asthma with (acute) exacerbation; J44.9 Chronic obstructive pulmonary disease, unspecified; J96.02 Acute respiratory failure with hypercapnia; E66.9 Obesity, unspecified; F12.10 Cannabis abuse, uncomplicated; F19.10 Other psychoactive substance abuse, uncomplicated; M51.16 Intervertebral disc disorders with radiculopathy, lumbar region; M47.26 Other spondylosis with radiculopathy, lumbar region; I48.0 Paroxysmal atrial fibrillation; Z20.822 Contact with and (suspected) exposure to COVID-19; I10 Essential (primary) hypertension; F15.10 Other stimulant abuse, uncomplicated; G89.29 Other chronic pain; Z68.35 Body mass index [BMI] 35.0-35.9, adult; Z79.899 Other long term (current) drug therapy; Z79.51 Long term (current) use of inhaled steroids; Z88.6 Allergy status to analgesic agent
CPT/HCPCS: 31500; 36415; 36573; 36600; 71045; 80048; 80053; 80305; 80320; 81003; 82375; 82607; 82746; 82805; 83605; 83735; 83880; 84478; 84484; 84703; 85025; 86850; 86900; 87070; 87426; 87804; 92610; 93005; 93306; 93970; 94002; 94003; 94640; 94660; 99291; C1725; C9113; C9803; J1200; J1650; J1956; J2250; J2270; J2704; J2920; J2930; J3010; J3475; J3490; J7050; J7060; J7512; J7626; G0480

== ENCOUNTER 2022-05-10 14:53 | Inpatient (IN) | payer MEDICAID, OTHER ==
[~2022-05-10] VITALS: Ht 160 cm; Wt 89.8 kg
[~2022-05-10 14:53] MED LIST changes: -ALBU6.7H3 INH; +CLAR10 PO; -CYCL10TA21 MT; -CYCL2DRO LEFTEYE; +DILT60TA35 PO; -ETOMIDATE 2MG/ML 10ML VIAL IV ONE; +FAMO20TA8 MT; -IBUP-2029 MT; -MELO-106 MT; -ONDA4TAB5 PO; -OXYC-662 MT; -P50 MT; -PANT40TA51 MT; -TRAM50TA3 PO
[2022-05-10] MEDS ORDERED: METHYLPREDNISOLONE SOD SUCC 125 MG/2 ML VIAL IV ONE (16:45)
[2022-05-10] MEDS ORDERED: IPRATROPIUM/ALBUTEROL 0.5-3(2.5)MG/3ML NEB HHN ONE ×2 (16:45→20:00)
[2022-05-10] MEDS ORDERED: MORPHINE SULFATE 4 MG/ML CPJ (NOT FOR IM USE) IV ONE (17:15)
[2022-05-10] MEDS ORDERED: DIPHENHYDRAMINE 50MG/ML VIAL IV ONE (17:45)
[2022-05-10 18:10] LABS: BASOPHILS % 0.5 % (0.0-2.0); EOSINOPHILS % 3.5 % (0.0-5.0); HEMATOCRIT. 40.3 % (36.0-48.0); HEMOGLOBIN. 13.4 g/dL (12.0-16.0); LYMPHOCYTES % 39.3 % (20.0-50.0); MEAN CORPUSCULAR HEMOGLOBIN 31.1 pg (28.0-32.0); MEAN CORPUSCULAR VOLUME 93.6 fL (81.0-99.0); MEAN PLATELET VOLUME 9.2 fl (7.4-10.4); MONOCYTES % 6.7 % (2.0-8.0); PLATELET 229 x1000/uL (130-400); RED CELL DISTRIBUTION WIDTH 17.3 % (11.6-14.6)
[2022-05-10 18:12] LABS: HCG SCREEN NEGATIVE
[2022-05-10 18:14] LABS: CHLORIDE 106 mEq/L (98-107)
[2022-05-10] MEDS ORDERED: IPRATROPIUM/ALBUTEROL 0.5-3(2.5)MG/3ML NEB ONE (18:28)
[2022-05-10] MEDS ORDERED: MAGNESIUM 2 G PREMIX 50 ML IV ONE (19:15)
[2022-05-11 01:30] VITALS: BP 120/95
[2022-05-11 01:31] VITALS: BP 120/95
[2022-05-11] MEDS ORDERED: DIPHENHYDRAMINE 50MG/ML VIAL IV NR (02:30)
[2022-05-11] MEDS ORDERED: HYDROCODONE/ACETAMINOPHEN 10/325MG TABLET PO PRN (02:30)
[2022-05-11] MEDS ORDERED: ZOLPIDEM TARTRATE 5MG TABLET PO PRN (02:30)
[2022-05-11] MEDS ORDERED: IPRATROPIUM/ALBUTEROL 0.5-3(2.5)MG/3ML NEB HHN PRN (02:30)
[2022-05-11] MEDS ORDERED: ALPRAZOLAM 0.5 MG TABLET PO PRN (02:30)
[2022-05-11] MEDS ORDERED: MORPHINE SULFATE 2 MG/ML CPJ (NOT FOR IM USE) IV NR (02:30)
[2022-05-11] MEDS ORDERED: IPRATROPIUM BROMIDE (0.02%) 0.5MG/2.5ML NEB HHN PRN (03:00)
[2022-05-11] MEDS ORDERED: ALBUTEROL (0.083%) 2.5MG/3ML NEB HHN PRN (03:00)
[2022-05-11 03:16] LABS: HEPATITIS B SURFACE ANTIGEN NEGATIVE
[2022-05-11] MEDS: ALBUTEROL (0.083%) 2.5MG/3ML NEB HHN SCH ×3 (03:21→12:00)
[2022-05-11] MEDS: IPRATROPIUM BROMIDE (0.02%) 0.5MG/2.5ML NEB HHN SCH ×3 (03:21→12:00)
[2022-05-11 04:00] VITALS: BP 138/81
[2022-05-11] MEDS ORDERED: IPRATROPIUM/ALBUTEROL 0.5-3(2.5)MG/3ML NEB HHN SCH (04:00)
[2022-05-11 08:00] VITALS: BP 118/86
[2022-05-11] MEDS ORDERED: KETOROLAC 30MG/ML VIAL IV PRN (08:00)
[2022-05-11] MEDS ORDERED: DIPHENHYDRAMINE 25MG CAPSULE PO PRN (08:00)
[2022-05-11] MEDS ORDERED: METHYLPREDNISOLONE SOD SUCC 40 MG/ML VIAL IV SCH (08:00)
[2022-05-11] MEDS: FAMOTIDINE 20MG TABLET PO SCH ×2 (09:00→09:08)
[2022-05-11] MEDS ORDERED: ENOXAPARIN 40MG/0.4ML SYR SUBCUT SCH (09:00)
[2022-05-11] MEDS ORDERED: LORATADINE 10MG TABLET PO SCH (09:00)
[2022-05-11] MEDS ORDERED: AMLODIPINE 10MG TABLET PO SCH (12:00)
[2022-05-11 13:39] VITALS: BP 160/108
[2022-05-11] MEDS ORDERED: MONTELUKAST SODIUM 10MG TABLET PO SCH (21:00)
== END 2022-05-11 13:18 | disposition home or self-care (01) | DRG 141 ==
LOC: ER 15:07 → MICUSO 20:09 → 7EST 05-11 01:45
PROVIDERS: ADMIT Internal Medicine; ATTEND Internal Medicine
DX: J45.901 Unspecified asthma with (acute) exacerbation (principal); E66.9 Obesity, unspecified; Z88.6 Allergy status to analgesic agent; Z68.35 Body mass index [BMI] 35.0-35.9, adult
CPT/HCPCS: 36415; 71045; 73590; 74176; 80053; 83880; 84484; 84703; 85025; 86803; 87340; 93005; 94640; 99291; J1200; J1650; J1885; J2270; J2920; J2930; J3475; Q0163

== ENCOUNTER 2022-10-30 23:47 | Emergency (ER) | payer MEDICAID, OTHER ==
[~2022-10-30] VITALS: Ht 165.1 cm; Wt 100.0 kg
[2022-10-31 00:10] VITALS: BP 131/96; PULSE 92; RESP 20; TEMP 98.4; O2SAT 97
[2022-10-31 03:16] LABS: CHLORIDE 106 mEq/L (98-107); INDEX HEMOLYSI 1 (1-3); INDEX ICTERIC 1 (1-4); INDEX LIPEMIC 1 (1-3); POTASSIUM 4.1 mEq/L (3.5-5.1); SODIUM 137 mEq/L (136-145)
[2022-10-31 03:24] LABS: BASOPHILS % 0.5 % (0.0-2.0); EOSINOPHILS % 3.5 % (0.0-5.0); HEMATOCRIT. 36.3 % (36.0-48.0); HEMOGLOBIN. 12.1 g/dL (12.0-16.0); LYMPHOCYTES % 30.7 % (20.0-50.0); MEAN CORPUSCULAR HEMOGLOBIN 29.8 pg (28.0-32.0); MEAN CORPUSCULAR HGB CONC 33.2 g/dL (31.0-37.0); MEAN CORPUSCULAR VOLUME 89.6 fL (81.0-99.0); MEAN PLATELET VOLUME 9.2 fl (7.4-10.4); MONOCYTES % 5.8 % (2.0-8.0); NEUTROPHILS % 59.5 % (40.0-76.0); PLATELET 346 x1000/uL (130-400); RED BLOOD CELL COUNT 4.06 mill/uL (4.2-5.4); RED CELL DISTRIBUTION WIDTH 15.4 % (11.6-14.6); WHITE BLOOD COUNT 6.9 x1000/uL (4.5-11.0)
[2022-10-31 03:31] LABS: ALANINE AMINOTRANSFERASE 12 IU/L (13-61); ALBUMIN 3.6 g/dL (3.4-5.0); ASPARTATE AMINOTRANSFERASE 10 IU/L (15-37); BILIRUBIN TOTAL 0.3 mg/dL (0.1-1.0); CALCIUM 9.2 mg/dL (8.5-10.1); CARBON DIOXIDE 25 mEq/L (21-32); CREATININE 0.7 mg/dL (0.6-1.3); GLUCOSE 98 mg/dL (70-105); PROTEIN TOTAL 8.3 g/dL (6.0-8.3); UREA NITROGEN BLOOD 7 mg/dL (7-21)
[2022-10-31] MEDS ORDERED: MAGNESIUM/ALUMINUM HYDROXIDE/SIMETHICONE 30ML UDC PO NR (04:11)
[2022-10-31] MEDS ORDERED: DIPHENHYDRAMINE 50MG/ML VIAL IM NR (04:15)
[2022-10-31] MEDS ORDERED: IBUP-2029 MT (06:05)
== END 2022-10-31 07:26 | disposition home or self-care (01) ==
LOC: ER 23:47
DX: K80.20 Calculus of gallbladder without cholecystitis without obstruction (principal); R10.819 Abdominal tenderness, unspecified site; F12.90 Cannabis use, unspecified, uncomplicated; J45.909 Unspecified asthma, uncomplicated; Z88.6 Allergy status to analgesic agent; Z88.5 Allergy status to narcotic agent; Z91.018 Allergy to other foods; Z88.8 Allergy status to other drugs, medicaments and biological substances; Z79.899 Other long term (current) drug therapy
CPT/HCPCS: 99285; 80053; 83690; 85025; 36415; 74176; 96372; J1200; Z7610

== ENCOUNTER 2023-10-17 16:53 | Emergency (ER) | payer MEDICAID ==
[~2023-10-17] VITALS: Ht 160 cm; Wt 94.0 kg
[~2023-10-17 16:53] MED LIST changes: +IBUP-2029 MT
[2023-10-17 16:58] VITALS: BP 154/115; PULSE 98; RESP 16; TEMP 98.4; O2SAT 99
[2023-10-17 17:25] LABS: CLARITY URINE CLEAR (CLEAR); COLOR URINE YELLOW (YELLOW); GLUCOSE URINE NEGATIVE (NEGATIVE); KETONES URINE NEGATIVE (NEGATIVE); LEUKOCYTE ESTERASE URINE NEGATIVE (NEGATIVE); NITRITE URINE NEGATIVE (NEGATIVE); OCCULT BLOOD URINE NEGATIVE (NEGATIVE); PROTEIN URINE NEGATIVE (NEGATIVE); SPECIFIC GRAVITY URINE 1.021 (1.005-1.030)
[2023-10-17 18:11] LABS: BASOPHILS % 0.7 % (0.0-2.0); EOSINOPHILS % 6.9 % (0.0-5.0); HEMATOCRIT. 34.9 % (36.0-48.0); HEMOGLOBIN. 11.7 g/dL (12.0-16.0); LYMPHOCYTES % 38.5 % (20.0-50.0); MEAN CORPUSCULAR HEMOGLOBIN 32.2 pg (28.0-32.0); MEAN CORPUSCULAR HGB CONC 33.5 g/dL (31.0-37.0); MEAN CORPUSCULAR VOLUME 96.2 fL (81.0-99.0); MEAN PLATELET VOLUME 9.3 fl (7.4-10.4); MONOCYTES % 6.1 % (2.0-8.0); NEUTROPHILS % 47.8 % (40.0-76.0); PLATELET 227 x1000/uL (130-400); RED BLOOD CELL COUNT 3.62 mill/uL (4.2-5.4); WHITE BLOOD COUNT 4.6 x1000/uL (4.5-11.0)
[2023-10-17 18:15] LABS: CHLORIDE 108 mEq/L (98-107); POTASSIUM 3.4 mEq/L (3.5-5.1); SODIUM 140 mEq/L (136-145)
[2023-10-17 18:16] LABS: CALCIUM 9.3 mg/dL (8.7-10.4); CARBON DIOXIDE 29 mEq/L (21-32)
[2023-10-17] MEDS ORDERED: FAMOTIDINE 20MG/2ML VIAL IV STA (18:18)
[2023-10-17 18:21] LABS: CREATININE 0.7 mg/dL (0.6-1.0); GLUCOSE 76 mg/dL (70-105)
[2023-10-17 18:23] LABS: ALANINE AMINOTRANSFERASE 11 IU/L (10-49); ALBUMIN 4.4 g/dL (3.2-4.8); ASPARTATE AMINOTRANSFERASE 14 IU/L (<34); BILIRUBIN TOTAL 0.2 mg/dL (0.1-1.0)
[2023-10-17 18:28] LABS: BILIRUBIN DIRECT < 0.1 mg/dL (<=3.0); UREA NITROGEN BLOOD < 5 mg/dL (9-23)
[2023-10-17] MEDS ORDERED: DIPHENHYDRAMINE 50MG/ML VIAL IV ONE (18:30)
[2023-10-17] MEDS ORDERED: SODIUM CHLORIDE 0.9% 1,000 ML IV ONE (18:30)
[2023-10-17] MEDS ORDERED: PROCHLORPERAZINE 10MG/2ML VIAL IV ONE (18:30)
[2023-10-17 18:45] LABS: HCG SCREEN NEGATIVE; TROPONIN I HIGH SENSITIVITY 4 ng/L (3.0-34)
== END 2023-10-17 20:15 | disposition left against medical advice (07) ==
LOC: ER 16:58
DX: R10.9 Unspecified abdominal pain (principal); R51.9 Headache, unspecified; F12.10 Cannabis abuse, uncomplicated; J45.909 Unspecified asthma, uncomplicated; Z88.6 Allergy status to analgesic agent; Z88.5 Allergy status to narcotic agent; Z91.018 Allergy to other foods; Z79.899 Other long term (current) drug therapy
CPT/HCPCS: 99284; 80076; 80048; 81003; 84703; 83690; 85025; 86850; 86900; 86901; 84484; 36415; 93005; J7030; J0780

== ENCOUNTER 2023-10-19 18:41 | Emergency (ER) | payer MEDICAID, OTHER ==
[~2023-10-19] VITALS: Ht 160 cm; Wt 95.0 kg
[2023-10-19 18:46] VITALS: O2SAT 99
[2023-10-19 20:13] LABS: HEMATOCRIT 38.8 % (36.0-48.0); HEMOGLOBIN 12.4 g/dL (12.0-16.0); MEAN CORPUSCULAR HEMOGLOBIN 31.7 pg (28.0-32.0); MEAN CORPUSCULAR HGB CONC 32.1 g/dL (31.0-37.0); MEAN CORPUSCULAR VOLUME 98.9 fL (81.0-99.0); PLATELET 213 x1000/uL (130-400); RED BLOOD CELL COUNT 3.92 mill/uL (4.2-5.4); RED CELL DISTRIBUTION WIDTH 15.6 % (11.6-14.6); WHITE BLOOD COUNT 5.5 x1000/uL (4.5-11.0)
[2023-10-19 20:23] LABS: CHLORIDE 110 mEq/L (98-107); SODIUM 141 mEq/L (136-145)
[2023-10-19 20:24] LABS: CALCIUM 9.8 mg/dL (8.7-10.4); CARBON DIOXIDE 25 mEq/L (21-32)
[2023-10-19 20:28] LABS: CREATININE 0.7 mg/dL (0.6-1.0)
[2023-10-19 20:29] LABS: GLUCOSE 67 mg/dL (70-105)
[2023-10-19 20:30] LABS: ALANINE AMINOTRANSFERASE 9 IU/L (10-49); ALBUMIN 4.5 g/dL (3.2-4.8); ASPARTATE AMINOTRANSFERASE 17 IU/L (<34); UREA NITROGEN BLOOD < 5 mg/dL (9-23)
[2023-10-19 20:31] LABS: BILIRUBIN TOTAL < 0.2 mg/dL (0.1-1.0)
[2023-10-19 20:32] LABS: HCG SCREEN NEGATIVE
[2023-10-19 20:35] LABS: TROPONIN I HIGH SENSITIVITY < 4 ng/L (3.0-34)
[2023-10-19 22:59] LABS: CLARITY URINE CLEAR (CLEAR); COLOR URINE YELLOW (YELLOW); GLUCOSE URINE NEGATIVE (NEGATIVE); KETONES URINE NEGATIVE (NEGATIVE); LEUKOCYTE ESTERASE URINE NEGATIVE (NEGATIVE); NITRITE URINE NEGATIVE (NEGATIVE); OCCULT BLOOD URINE NEGATIVE (NEGATIVE); PROTEIN URINE NEGATIVE (NEGATIVE); SPECIFIC GRAVITY URINE 1.019 (1.005-1.030); UROBILINOGEN URINE 0.2 E.U./dL (0.2-1.0)
[2023-10-19] MEDS: FAMOTIDINE 20MG/2ML VIAL IV ONE (23:42)
[2023-10-19] MEDS: ONDANSETRON HCL 4MG/2ML INJ IV ONE (23:42)
[2023-10-19] MEDS: SODIUM CHLORIDE 0.9% 1,000 ML IV ONE (23:43)
[2023-10-19] MEDS: DIPHENHYDRAMINE 50MG/ML VIAL IV ONE (23:49)
[2023-10-19] MEDS: KETOROLAC 30MG/ML VIAL IV ONE ×2 (23:49→23:50)
[2023-10-20 01:31] VITALS: BP 168/102; PULSE 88; RESP 18; TEMP 37.00296; O2SAT 99
[2023-10-20] MEDS ORDERED: IOHEXOL-300 100 ML BOTTLE ONE (08:34)
== END 2023-10-20 01:37 | disposition home or self-care (01) ==
LOC: ER 18:41
DX: R07.89 Other chest pain (principal); R11.2 Nausea with vomiting, unspecified; J45.909 Unspecified asthma, uncomplicated; F12.10 Cannabis abuse, uncomplicated; Z79.899 Other long term (current) drug therapy
CPT/HCPCS: 80053; 81003; 84703; 83690; 85027; 85379; 84484; 36415; 71045; 74177; 93005; 96361; 96374; 96375; 99285; J1200; J3490; J1885; J2405; J7030; Z7610 ×2; Q9967

== ENCOUNTER 2024-02-25 16:44 | Emergency (ER) | payer MEDICAID, OTHER ==
[~2024-02-25] VITALS: Ht 167.6 cm; Wt 77.0 kg
[~2024-02-25 16:44] MED LIST changes: +DILT360C27 MT
[2024-02-25 16:46] VITALS: BP 138/90; TEMP 98.1
[2024-02-25 17:49] VITALS: PULSE 80; RESP 16; O2SAT 98
[2024-02-25] MEDS: IPRATROPIUM BROMIDE (0.02%) 0.5MG/2.5ML NEB HHN STA (17:49)
[2024-02-25] MEDS: ALBUTEROL (0.083%) 2.5MG/3ML NEB HHN SCH (17:50)
[2024-02-25 18:15] VITALS: PULSE 76; RESP 16; O2SAT 98
[2024-02-25 18:30] VITALS: PULSE 70; RESP 16; O2SAT 98
[2024-02-25] MEDS: DIPHENHYDRAMINE 50MG/ML VIAL IM ONE (18:34)
[2024-02-25] MEDS: PREDNISONE 20MG TABLET PO STA (18:34)
[2024-02-25] MEDS ORDERED: MOME13HF12 INH (20:51)
[2024-02-25] MEDS ORDERED: ALBU18HF2 IH (20:51)
[2024-02-25] MEDS ORDERED: P50 MT (20:51)
== END 2024-02-25 21:43 | disposition home or self-care (01) ==
LOC: ER 16:44
DX: J45.901 Unspecified asthma with (acute) exacerbation (principal); Z79.51 Long term (current) use of inhaled steroids; Z79.52 Long term (current) use of systemic steroids; Z79.899 Other long term (current) drug therapy; Z88.5 Allergy status to narcotic agent; Z88.6 Allergy status to analgesic agent; Z91.018 Allergy to other foods; Z88.8 Allergy status to other drugs, medicaments and biological substances; Z98.890 Other specified postprocedural states
CPT/HCPCS: 71045; 94640; 94070; 96372; 99283; J7512; J1200; Z7610 ×3; 94664

== ENCOUNTER 2024-03-06 10:33 | Emergency (ER) | payer OTHER ==
[~2024-03-06] VITALS: Ht 160 cm; Wt 94.0 kg
[~2024-03-06 10:33] MED LIST changes: +P50 MT
[2024-03-06 10:45] VITALS: O2SAT 98
[2024-03-06 10:48] VITALS: BP 187/173; PULSE 89; RESP 20; TEMP 98.3; O2SAT 100
[2024-03-06 11:32] LABS: BASOPHILS % 0.8 % (0.0-2.0); DIFFERENTIAL COMMENT 0; EOSINOPHILS % 7.8 % (0.0-5.0); HEMATOCRIT. 39.6 % (36.0-48.0); LYMPHOCYTES % 41.5 % (20.0-50.0); MEAN CORPUSCULAR HEMOGLOBIN 32.3 pg (28.0-32.0); MEAN CORPUSCULAR HGB CONC 32.8 g/dL (31.0-37.0); MEAN CORPUSCULAR VOLUME 98.3 fL (81.0-99.0); MEAN PLATELET VOLUME 9.4 fl (7.4-10.4); MONOCYTES % 10.3 % (2.0-8.0); NEUTROPHILS % 39.6 % (40.0-76.0); PLATELET 236 x1000/uL (130-400); RED BLOOD CELL COUNT 4.02 mill/uL (4.2-5.4); RED CELL DISTRIBUTION WIDTH 14.9 % (11.6-14.6); WHITE BLOOD COUNT 3.9 x1000/uL (4.5-11.0)
[2024-03-06 11:39] LABS: CHLORIDE 107 mEq/L (98-107); POTASSIUM 4.4 mEq/L (3.5-5.1); SODIUM 139 mEq/L (136-145)
[2024-03-06 11:40] LABS: CALCIUM 9.7 mg/dL (8.7-10.4); CARBON DIOXIDE 24 mEq/L (21-32)
[2024-03-06 11:45] LABS: CREATININE 0.8 mg/dL (0.6-1.0); GLUCOSE 73 mg/dL (70-105); UREA NITROGEN BLOOD 8 mg/dL (9-23)
[2024-03-06 12:12] LABS: CLARITY URINE CLEAR (CLEAR); COLOR URINE YELLOW (YELLOW); GLUCOSE URINE NEGATIVE (NEGATIVE); KETONES URINE NEGATIVE (NEGATIVE); LEUKOCYTE ESTERASE URINE NEGATIVE (NEGATIVE); NITRITE URINE NEGATIVE (NEGATIVE); OCCULT BLOOD URINE NEGATIVE (NEGATIVE); PH URINE 8.5 (4.5-8.0); PROTEIN URINE TRACE (NEGATIVE); SPECIFIC GRAVITY URINE 1.018 (1.005-1.030); UROBILINOGEN URINE 0.2 E.U./dL (0.2-1.0)
[2024-03-06] MEDS: PANTOPRAZOLE SODIUM 40 MG/VIAL IV STA (13:27)
[2024-03-06] MEDS: METOCLOPRAMIDE HCL 10MG/2ML VIAL IV ONE (13:30)
[2024-03-06] MEDS: DIPHENHYDRAMINE 50MG/ML VIAL IV ONE (13:30)
[2024-03-06 13:41] LABS: BACTERIA URINE TRACE; SQUAMOUS EPITHELIAL CELL URINE 3+ /lpf (RARE/1+); WBC URINE 0-2 /hpf (0-2)
[2024-03-06 13:42] LABS: RBC URINE 0-2 /hpf (0-2)
[2024-03-06 14:19] LABS: ALANINE AMINOTRANSFERASE < 7 IU/L (10-49); ALBUMIN 4.6 g/dL (3.2-4.8); ASPARTATE AMINOTRANSFERASE 14 IU/L (<34); BILIRUBIN TOTAL 0.2 mg/dL (0.1-1.0); PROTEIN TOTAL 7.7 g/dL (6.0-8.3)
[2024-03-06 14:35] LABS: BILIRUBIN DIRECT < 0.1 mg/dL (<=3.0)
[2024-03-06] MEDS: SODIUM CHLORIDE 0.9% 1,000 ML IV ONE (16:15)
[2024-03-06] MEDS: METOCLOPRAMIDE HCL 10MG/2ML VIAL IV NR (16:19)
[2024-03-06] MEDS: PANTOPRAZOLE SODIUM 40 MG/VIAL IV NR (16:19)
[2024-03-06] MEDS: DIPHENHYDRAMINE 50MG/ML VIAL IV NR (16:19)
[2024-03-06] MEDS ORDERED: CELE100C MT (17:14)
[2024-03-06] MEDS ORDERED: ONDA4TAB50 MT (17:14)
[2024-03-06] MEDS: MORPHINE SULFATE 4 MG/ML INJ (FOR IV/IM USE) IV ONE (18:15)
== END 2024-03-06 19:02 | disposition home or self-care (01) ==
LOC: ER 10:33
DX: R10.32 Left lower quadrant pain (principal); R10.12 Left upper quadrant pain; R11.2 Nausea with vomiting, unspecified; K80.20 Calculus of gallbladder without cholecystitis without obstruction; J45.909 Unspecified asthma, uncomplicated; Z79.899 Other long term (current) drug therapy; Z97.5 Presence of (intrauterine) contraceptive device; Z79.52 Long term (current) use of systemic steroids; Z79.51 Long term (current) use of inhaled steroids; Z98.890 Other specified postprocedural states; Z91.018 Allergy to other foods; Z88.8 Allergy status to other drugs, medicaments and biological substances; Z88.5 Allergy status to narcotic agent
CPT/HCPCS: 99285; 74176; 96365; 76830; 76856; 96375; 71045; 96366; 80076; 80048; 81003; 81025; 83690; 85025; 36415; 93005; J1200; J2765; J2470; J7030